=== PATIENT | male | born 1935 | race Caucasian/White ===

== ENCOUNTER 2020-09-23 02:36 | Emergency (ER) | payer MEDICARE, BC ==
[~2020-09-23] VITALS: Ht 177.8 cm; Wt 83.9 kg
[~2020-09-23 02:36] MED LIST: ADVIL200 MG PO; ASPIR-LOW81 MG PO; BACLOFEN10 MG PO; FLOMAX0.4 MG PO; GABAPENTIN300 MG PO; ICAPS TABLET1 EACH PO; MOTRIN IB200 MG PO; OXYCODONE HCL10 MG PO; PERCOCET 5-3251 EACH PO; PERCOCET 7.5-31 EACH PO; TYLENOL EXTRA500 MG PO; VITAMIN C500 M4 PO
== END 2020-09-23 03:14 | disposition home or self-care (01) ==
LOC: ED 02:36
DX: R33.9 Retention of urine, unspecified (principal); Z79.899 Other long term (current) drug therapy; Z79.82 Long term (current) use of aspirin
CPT/HCPCS: 51702; 99283-25

== ENCOUNTER 2020-09-25 06:09 | Emergency (ER) | payer MEDICARE, BC ==
[~2020-09-25] VITALS: Ht 177.8 cm; Wt 83.9 kg
--- OUTSIDE RECORDS SUMMARY | 2020-09-25 06:12 | XMS ---
PreManage Notification: KVNG MEDRANO Security [employer]ic [employer]ter Events No recent Security Events currently on file CRITERIA MET - [facility] - 2 Visits in 30 Days CARE PROVIDERS There are no care providers on record at this time. Bob has no Care Guidelines for this patient. rAlene VISIT COUNT (12 MO.) 2 [facility] [place] [facility] TOTAL 2 NOTE: Visits indicate total known visits. ED/C VISIT TRACKING (12 MO.) 09/25/2020 06:[address] [facility] [place] TYPE: Emergency COMPLAINT: - URINATION PROBLEM 09/23/2020 02:36 [facility] [place] TYPE: Emergency COMPLAINT: - POST OP PROBLEM INPATIENT VISIT TRACKING (12 MO.) No inpatient visits to display in this time frame [email or web address]
[2020-09-25] MEDS ORDERED: FLOMAX0.4 MG PO (07:52)
[2020-09-25] MEDS ORDERED: SULFAMETHOXAZO1 EAC1 PO (08:43)
== END 2020-09-25 08:37 | disposition home or self-care (01) ==
LOC: ED 06:09
DX: R33.9 Retention of urine, unspecified (principal)
CPT/HCPCS: 51702; 51798; 81001; 99283-25

== ENCOUNTER 2021-09-17 11:52 | Inpatient (IN) | payer MEDICARE, BC ==
[~2021-09-17] VITALS: Ht 177.8 cm; Wt 84.2 kg
[~2021-09-17 11:52] MED LIST changes: +SULFAMETHOXAZO1 EAC1 PO
--- NOTE | 2021-09-17 15:06 | NUR ---
REPORT RECEIVED FROM CANDLEMAKER. PT TRANSPORTED TO CCU VIA STRETCHER ON MARKETING SUPPORT MANAGER. ALL BELONGINS BROUGHT WITH PT
--- NOTE | 2021-09-17 15:45 | NUR ---
ADMISSION ASSESSMENT COMPLETED. PT ALERT AND ORIENTED UPON ARRIVAL. ABLE TO USE STANDING SCALE AND AMBULATE TO BED WITH ONLY STAND BY ASSIST. HEART RATE UP TO 130 WITH EXERTION. AND PT VISIBLY SHORT OF BREATH. ON 5 MG/HR ON THE CARDIZEM DRIP. AT REST HEART RATE STILL 110-120. CARDIZEM TITRATED AT THIS TIME (SEE FLOWSHEET). CRACKLES IN LOWER LUNG BASES NOTED. PLAN OF CARE ESTABLISHED WITH PT AND PT'S . ALL QUESTIONS ANSWERED. MEDICATIONS ADMINISTERED. CALL LIGHT WITHIN REACH. WILL CONTINUE TO MONITOR.
--- NOTE | 2021-09-17 15:56 | NUR ---
PT STOOD AT BEDSIDE TO VOID. HEART RATE UP TO 150S WITH EXERTION. RESPIRATIONS IN THE 30S. PT NOW BACK IN BED. CARDIZEM DIP CONTINUES TO INFUSE. CALL LIGHT WITHIN REACH. WILL CONTINUE TO MONITOR.
--- NOTE | 2021-09-17 16:54 | NUR ---
PT AT 10 MG/HR ON THE CARDIZEM DRIP. HEART RATE CONTINUES TO GO UP INTO THE 140S WITH EXERTION. RESTING HEART RATE 100-120. PT NOW EATING DINNER. [facility]. WILL CONTINUE TO MONITOR.
--- NOTE | 2021-09-17 20:30 | NUR ---
ASSISTED PATIENT TO STAND AT BEDSIDE AND USE URNAL. PATIENT REWQUIRED MINIMAL ASSISTANCE. VOIDED 125 MLS AND RETUNRED TO BED. INCREASED RR HIGH 20'S. DENIED SOB. ASSISTED TO TURNED TO LEFT SIDE AND WARM BLANKET PROVIDED. CALL LIGHT IN REACH.
--- NOTE | 2021-09-17 20:40 | NUR ---
PT LAYING IN BED AWAKE AND ALERT ON ROOM AIR, DILTIAZEM DRIP ON AT 5MG/HR. HR NOTED TO BE MAINTIANING IN THE 80-90'S. PT VITALS TAKEN AND SCHEDULED PO LOPRESSOR ADMINISTERED (SEE APR). PT DENIES THE NEED FOR PAIN MEDICATION AT THIS TIME. ASSESSMENT COMPLETED. PT ALERT AND ORIENTED X4, HEART RYTHM IRREGULAR, LUNGS ARE CLEAR IN UPPER LOBES AND CLEAR/DIMINISHED IN THE BASES. PT DENIES SHORTNESS OF BREATH AT THIS TIME WHILE AT REST. ABDOMEN SOFT, BOWEL TONES ACTIVE. PT PULSES ARE STRONG WITH BRISK CAPILLARY REFILL IN EXTREMITIES. PT REPORTS ONL NUMBNESS/TINGLING ON THE RIGHT HAND ALONG SMALL FINGER/SIDE OF HAND WHICH HE REPORTS IS CHRONIC AND FROM GOUT. PT REPORTS NO FURTHER NEEDS AFTER BEING ASSESSED AND REMAINS RESTING IN BED. CALL LIGHT IN REACH, BED IN LOWEST POSITION, BED ALARM ON. WILL CONTINUE PLAN OF CARE.
--- NOTE | 2021-09-17 21:50 | NUR ---
PT RESTING IN BED AWAKE, DILTIAZEM DRIP REMAINS AT 5MG/HR. PT ECG LEADS REPLACED AT THIS TIME. PT REPORTS NO PAIN AT THIS TIME WHEN ASKED AND DENIES THE NEED FOR PAIN MEDICATION. PT NOTED TO DESATURATE WHILE FALLING ASLEEP. PT DENIES SHORTNESS OF BREATH WHEN ASKED. PT WAS PLACED ON 2L O2 NC AT THIS TIME TO MAINTAIN SPO2 ABOVE 90%. PT NOW AT 99% SPO2. PT REPORTS NO FURTHER NEEDS AT THIS TIME. CALL LIGHT IN REACH, BED IN LOWEST POSITION. WILL CONTINUE PLAN OF CARE.
--- NOTE | 2021-09-17 23:52 | NUR ---
CALL LIGHT USED BY PT, PT SITTING UP AT THE BEDSIDE AND STATES HE NEEDS TO VOID. PT ABLE TO STAND WITHOUT ASSISTANCE AND VOIDED 100ML INTO URINAL. PT NOTED TO BECOME SHORT OF BREATH WHEN STANDING UP, SPO2 MAINTAINED ABOVE 90% DURING THAT TIME. PT NOW BACK IN BED. PT REMAINS ON 5MG/HR DILTIAZEM AND 2L O2 NC. ONCE IN BED THE PT REPORTED 4/10 BACKPAIN AND REQUESTED PRN TRAMADOL. PRN TRAMADOL ADMINISTERED (SEE MAR). SNACKS PROVIDED PER PT'S REQUEST. PT REPORTS NO FURTHER NEEDS WHEN ASKED AND IS RESTING IN BED AT THIS TIME. CALL LIGHT IN REACH, BED IN LOWEST POSITION, WILL CONTINUE PLAN OF CARE.
--- NOTE | 2021-09-18 00:30 | NUR ---
PATIENT VOIDED TO URNAL 100 MLS. REQUIRED MINIMAL ASSISTANCE. WARM BLANKET PROVIDED PER REQUEST. CALL LIGHT IN REACH.
--- NOTE | 2021-09-18 02:15 | NUR ---
GOPAL MCKENZIE IN PT'S ROOM TO ASSIST THIS RN. GOPAL MCKENZIE ADMINISTERED SCHEDULED LOPRESSOR AND TITRATED PT'S DILTIAZEM DRIP TO 2.5MG/HR.
--- NOTE | 2021-09-18 03:10 | NUR ---
PT LAYING IN BED AWAKE AND ALERT AT THIS TIME ON HIS SIDE. VITALS TAKEN AT THIS TIME AND ASSESSMENT COMPLETED (SEE CHART). PT REMAINS ON 2L O2 NC, DILTIAZEM AT 2.5 MG/HR. HR MAINTAINING IN THE 80-90'S. PT REPORTS NO NEEDS WHEN ASKED AND REMAINS RESTING IN BED. WILL CONTINUE PLAN OF CARE.
--- NOTE | 2021-09-18 06:04 | NUR ---
PT REMAINS RESTING IN ROOM, EYES CLOSED. DILTIAZEM DRIP REMAINS AT 2.5 MG/HR, PT ON 2L O2. HR REMAINS IN THE 90'S. URINAL EMPTIED AT THIS TIME. PT IN NO APPARENT DISTESS AT THIS TIME AND WAS LEFT UNDISTURBED. CALL LIGHT WITHIN REACH, WILL CONTINUE PLAN OF CARE.
--- NOTE | 2021-09-18 06:05 | NUR ---
PT LAYING IN BED RESTING WITH HIS EYES CLOSED AT THIS TIME. DILTIAZEM REMAINS AT 2.5MG/HR, PT ON 2L O2 NC. HR 90'S, SPO2 98%. URINAL EMTPIED OF 275ML OF CONCENTRATED URINE AT THIS TIME. PT IN NO APPARENT DISTRESS AT THIS TIME AND WAS LEFT UNDISTURBED. CALL LIGHT IN REACH, BED IN LOWEST POSITION, WILL CONTINUE PLAN OF CARE.
--- NOTE | 2021-09-18 06:55 | NUR ---
DR. GREEN NOTIFIED ON PT'S VITALS, DILTIAZEM DRIP, AND LABS. NEW ORDERS GIVEN TO ADMINISTER 2 G MAGNESIUM SULFATE X2 OVER 2 HOURS, INCREASE PO METOPROLOL DOSE TO 25MG Q6, AND WEAN OFF DILTIAZEM DRIP AFTER ADMINISTERING 0800 DOSE OF METOPROLOL. WILL CONTINUE PLAN OF CARE.
--- NOTE | 2021-09-18 07:15 | NUR ---
REPORT RECEIEVED, FROM THERAPIST PHYS RN. CARE OF PT ASSUMED AT THIS TIME. HEAD OF IT IN ROOM WITH PT AT THIS TIME.
[2021-09-18] MEDS ORDERED: OMEPRAZOLE20 MG PO (07:55)
[2021-09-18] MEDS ORDERED: TRAMADOL HCL50 MG PO (07:56)
[2021-09-18] MEDS ORDERED: TRAZODONE HCL50 MG PO (07:57)
[2021-09-18] MEDS ORDERED: TAMSULOSIN HCL0.4 MG PO (07:58)
--- NOTE | 2021-09-18 08:15 | NUR ---
ASSESSMENT AND MEDICATION ADMINISTRATION COMPLETED. PT REMAINS AT 2.5 MG/HR ON THE DILTAZEM DRIP. GIVEN 25 MG OF ORAL LOPRESSOR AT THIS TIME. PLAN ESTABLISHED TO DC DRIP IN 1/2 HR. PT STILL HAS BILATERAL EDEMA IN LOWER LEGS, CRACKLES IN LUNG BASES. PT UP IN CHAIR EATING BREAKFAST. CALL LIGHT WITHIN REACH. WILL CONTINUE TO MONITOR.
--- NOTE | 2021-09-18 08:40 | NUR ---
DILTAZEM DRIP PLACED ON STANDBY AT THIS TIME. PT HEART RATE 90-100 AT REST. WILL CONTINUE TO CLOSELY MONITOR.
--- NOTE | 2021-09-18 10:39 | NUR ---
KRISTIAN ADMINISTERED. PT AND UPDATED ON PLAN OF CARE. ALL QUESTIONS ANSWERED. HEART RATE IN THE 80S. CALL LIGHT WITHIN REACH. NO FURTHER NEEDS AT THIS TIME.
--- NOTE | 2021-09-18 10:45 | NUR ---
INTO SEE PATIENT, PATIENT SITTING UP IN CHAIR. PATIENTS KOURTNEY AT BEDSIDE. PATIENT HAS BEEN INDEPENDENT IN THE PAST, BUT HAS NEEDED TO USE A WALKER RECENTLY DUE TO BACK PAIN. PATIENT DENIES FINANCIAL NEEDS AT THIS TIME. PCP, PHARMACY AND DEMOGRAPHIC INFORMATION CONFIRMED. NO FURTHER CONCERN FROM PATIENT AND AT THIS TIME.
[2021-09-18] MEDS ORDERED: METAMUCIL660 GM PO (10:49)
[2021-09-18] MEDS ORDERED: VITAMIN D350 MCG PO (10:49)
--- NOTE | 2021-09-18 12:05 | NUR ---
DR GREEN IN ROOM TO DISCUSS PLAN OF CARE WITH PT AND . ALL QUESTIONS ANSWERED. PT REMAINS UP IN RECLINER. CALL LIGHT WITHIN REACH. WILL CONTINUE TO MONITOR.
--- NOTE | 2021-09-18 12:22 | NUR ---
PT ALERT, ORIENTED AND SITTING UP IN CHAIR WITH LEGS ELEVATED. KOURTNEY VISITING. PT FEELS WELL CARED FOR, BOTH EXPRESS APPRECIATION FOR CARE AND COMPASSION SHOWN. PT REQUESTED PRAYER, WILL FOLLOW
--- NOTE | 2021-09-18 14:36 | NUR ---
IN ROOM TO CHECK ON PT. PT SITTING IN RECLINER WITH LEGS DOWN. DISCUSSED KEEPING LEGS ELEVATED WITH PT AND PT . 2 PLUS PITTING EDEMA PRESENT IN BOTH LEGS. LUNG SOUNDS HAVE IMPROVED. LESS CRACKLES NOTED IN BILATERAL LUNG BASES THAN EARLIET IN THE SHIFT. LASIX WORKING WELL. PT DIURESED 1600 MLS SINCE ADMINISTRATION OF LASIX. HEART RATE 90-100 AT REST. CALL LIGHT WITHN REACH. WILL CONTINUE TO MONITOR.
--- NOTE | 2021-09-18 15:55 | NUR ---
PT AMBULATED IN HALLWAY WITH 4WW AND THIS RN STAND BY ASSIST. PT HEART RATE UP TO 120 AT THE HIGHEST. PT LESS SHORT OF BREATH WITH EXERTION. ABLE TO WALK THE HALLWAY TWICE. BACK IN CHAIR. HEART RATE 100-110 AT REST. IN ROOM WITH PT. CALL LIGHT WITHIN REACH. WILL CONTINUE TO MONITOR.
--- NOTE | 2021-09-18 18:14 | NUR ---
PT AMBULATED TO BATHROOM TO HAVE A BOWEL MOVEMENT. HEART RATE UP INTO THE 130S. NOW AT REST HEART RATE 95-110. PT DENIES FEELING SHORT OF BREATH. NOW RESTING IN CHAIR. DR GREEN UPDATED.
--- NOTE | 2021-09-18 19:47 | NUR ---
pt GETTING UP BY SELF. IN TO ASSIST. pt GOT BED READY. PROVIDED WITH WARM BLANKET. 175MLS OUT LIGHT YELLOW URINE. pt RESTING IN BED. CALL LIGHT IN HAND.
--- NOTE | 2021-09-18 20:05 | NUR ---
pt SETTLED IN BED FOR NIGHT. ASSESSMENT DONE. pt DENIES PAIN AT THIS TIME. PITTING EDEMA FROM THIGHS TO FEET. pt REPORTS "MY LEGS FEEL A LOT LESS TIGHT" FINE CRACKLES IN BILATERAL LUNG BASES. NO REQUESTS AT THIS TIME. CALL LIGHT WITHIN REACH.
--- NOTE | 2021-09-18 20:53 | NUR ---
pt UP TO VOID, HR 140'S WHEN UP. REQUIRED ABOUT 5 MINUTES OF REST IN BED BEFORE HR TRENDED DOWN TO 110'S.
--- NOTE | 2021-09-18 21:09 | NUR ---
DR GREEN NOTIFIED BY GOPAL MCKENZIE THAT pt HR IS HIGH WITH AMBULATION. DR GREEN TO PUT IN ORDERS.
--- NOTE | 2021-09-18 23:15 | NUR ---
pt UP TO HAVE BM. HR UP TO 140'S WHEN AMBULATING. MAGALY RN IN ROOM TO ASSIST pt.
--- NOTE | 2021-09-19 01:32 | NUR ---
pt UP TO HAVE BM. THIS RN IN TO ASSIST WITH CABLES. pt HR UP TO 140'S WITH AMBULATION. IN BATHROOM. CALL LIGHT WITHIN REACH.
--- NOTE | 2021-09-19 01:44 | NUR ---
pt FINISHED IN BATHROOM, REPORTS ANOTHER LIQUID STOOL. pt VOIDED 100MLS LIGHT YELLOW URINE. pt COMPLAINED OF BACK PAIN, DECLINED MEDICATION AT THIS TIME. SITTING IN THE CHAIR. VITALS DONE. SCHEDULED MEDICATIONS GIVEN. pt's BREATHING IS LABORED WHEN WALKING AND REQUIRES 5 OR MORE MINUTES OF REST TO RECOVER. pt STATES THIS HAS BEEN HIS NORMAL FOR "A WHILE". ASSESSMENT DONE. CALL LIGHT WITHIN REACH.
--- NOTE | 2021-09-19 02:08 | NUR ---
CALL LIGHT ON. pt REQUESTED ASSISTANCE TO REPOSITION. PROVIDED PILLOWS. PRN PAIN MEDICATION GIVEN FOR 7/10 PAIN. pt REPORTS HE FEELS "DOWN" ABOUT HIS PROGRESS AND THAT HIS HEART RATE IS NOT IMPROVING. HE ALSO IS FEELING "WORN OUT" FROM GETTING UP ALL THE TIME. DISCUSSED OPTIONS. BSC MOVED NEXT TO CHAIR. POSSESSIONS WITHIN REACH. pt AGREEABLE TO TRY PLAN. CALL LIGHT WITHIN REACH.
--- NOTE | 2021-09-19 03:41 | NUR ---
NOTED pt MOVING IN ROOM. HR 116 AT HIGHEST NOTED. ASSISTED pt WITH COVERS AND PROVIDED A WARM BLANKET. HE STATED HIS PAIN IS IMPROVED. 200MLS LIGHT YELLOW URINE OUT IN BSC. pt RESTING IN CHAIR. NO FURTHER REQUESTS AT THIS TIME. CALL LIGHT WITHIN REACH.
--- NOTE | 2021-09-19 05:33 | NUR ---
LAB FINISHED WITH DRAW. IN TO ASSESS. pt REPORTS HE IS FEELING "BETTER" THIS AM DISCUSSED PLAN OF CARE AND pt REPORTS HE FEELS LESS SHORT OF BREATH THIS AM. ASSESSMENT DONE. NO OTHER CHANGES. CALL LIGHT WITHIN REACH. pt RESTING IN THE CHAIR.
--- NOTE | 2021-09-19 06:02 | NUR ---
pt STANDING TO URINATE. HR 124, RESPIRATIONS 30 AND LABORED. IN TO EMPTY URINAL. 125 MLS LIGHT YELLOW URINE. pt HAD SMEAR BM. STANDING WEIGHT. pt RESTING IN CHAIR. pt REPORTS HIS BACK PAIN IS "STILL THERE BUT OKAY" CALL LIGHT WITHIN REACH.
--- NOTE | 2021-09-19 07:45 | NUR ---
REPORT RECIEVED FROM DRIVER SERVICE TECHNICIAN RN. PATIENT UP IN THE CHAIR AT THIS TIME. PATIENTS HR HAS BETTER CONTROLLED IN THE NIGHT. PATIENT HAS CALL LIGHT AND CALLS APPROPRUIATELY. WILL CONTINUE TO CLOSELY MONITOR.
--- NOTE | 2021-09-19 08:55 | NUR ---
PATIENT UP IN THE CHAIR READING. PATIENTS ASSESSMENT COMPLETED. PATIENTS BREATH SOUNDS ARE CLEAR IN UPPERS AND SOME CRACKLES NOTED IN BILATEAL LOWER BASES. RR- 22. SPO2 98%. PATIENT DENIES SOB , BUT DOES HAVE EXERTIONAL SOB WITH ACTIVITY. BOWEL TONES ACTIVE. BREKFAST AT THE BEDSIDE. MEDICATIONS GIVEN. PATIENT IS HOPING TO GET MOVED TO A NEW ROOM TODAY. PATIENT WOULD REALLY LIKE A SHOWER. PATIENT WAS UPDATED YESTERDAY THAT THERE ARE IS NO SHOWER IN HIS ROOM. WILL DISCUSS PLAN OF CARE WITH MD LATER TODAY. IF PATIENT DOES NOT MOVE ROOM WILL SEE IF MEDICAL UNIT STAFF CAN TAKE PATIENT FOR A SHOWER. PATIENT DENIES ANY OTHER NEEDS AT [facility] TIME. WILL CONTINUE TO CLOSELY MONITOR. CALL [facility] IN REACH.
--- NOTE | 2021-09-19 10:45 | NUR ---
THIS RN UPDATED MD GREEN THAT PATIENTS HR IS NOT WELL CONTROLLED AT THIS TIME. ADDITIONAL DOSE OF DILTIAZEM GIVEN PER ORDERS AND NEW ORDERS WERE PLACED FOR AN INCREASED AMOUNT ON NEXT ADMINISTRATION. PATIENT DENIES FEELING PALPITATIONS, BUT DOSE BECOME SOB WITH ACTIVITY. NO OTHER NEEDS AT THIS TIME. WILL CONTINUE TO CLOSELY MONITOR.
--- NOTE | 2021-09-19 12:30 | NUR ---
GREEN IN TO SEE PATIENT AND DISCUSSED PLAN OF CARE WITH PATIENT. PATIENT AND HIS ARE AGREEABLE TO PLAN OF CARE. PATIENT REQUESTING A SHOWER. PER MD PATIENT MAY TO TO THE MEDICAL UNIT WITH A MINING DETAIL DRAFTSPERSON AND HAVE A SHOWER. NO OTHER NEEDS AT THIS TIME. WILL CONTINUE TO CLOSELY MONITOR.
--- NOTE | 2021-09-19 14:46 | NUR ---
PATIENTS ASSESSMENT REMAINS UNCHANGED. PATIENT UPDATED THAT IRRIGATOR OVERHEAD WILL BE OVER TO ASSIST PATIENT TO SHOWER. NO OTHER NEEDS AT THIS TIME. WILL CONTINUE TO CLOSELY MONITOR.
--- NOTE | 2021-09-19 15:15 | NUR ---
PATIENT OVER WITH PHARMACEUTICAL OPERATOR PREM TO ROOM 118 TO TAKE A SHOWER. PATIENT REMIANED ON MONITOR.
--- NOTE | 2021-09-19 15:58 | NUR ---
PATIENT BACK FROM HIS SHOWER AND TOLERATED WELL. PATIENT MUCH HAPPIER AND WAS VERY THANKFUL HE SHOWERED. PATIENT DENIES ANY OTHER NEEDS AT THIS TIME. PATIENTS AT THE BEDSIDE. WILL CONTINUE TO CLOSELY MONITOR.
--- NOTE | 2021-09-19 17:28 | NUR ---
PATIENT HAS HAD FAMILY VISITING FOR PAST 1.5HRS. PATIENTS WATER REFILLED. DISCUSSED PLAN OF CARE. NO OTHER QUESTIONS AT THIS TIME. WILL CONTINUE TO CLOSELY MONITOR.
--- NOTE | 2021-09-19 18:54 | NUR ---
PATIENT RESTING IN CHAIR AT THIS TIME. PATIENT ATE DINNER AND TOELRATED WELL. PATIENT HAS CALL LIGHT. PATIENT DENIES ANY NEEDS AT THIS TIME. WILL CONTINUE TO CLOSELY MONITOR.
--- NOTE | 2021-09-19 21:11 | NUR ---
PATIENT RESTING ON SIDE, LUNG SOUNDS CLEAR THROUGHOUT. FULL BODY ASSESMENT DONE. PATIENT UP AND DOWN TO BSC, REPORTS HAVING MULTIPLE BOWEL MOVEMENTS. VSS WNL, HR 90 INCREASES TO 115 WITH ACTIVITY TO TOILET. PATIENT REPORTS NO PAIN. ADMINISTERED MEDICATIONS ORDERED. LIGHTS TURNED DOWN, CALL LIGHT WITHIN REACH.
--- NOTE | 2021-09-19 22:19 | NUR ---
PATIENT APPEARS TO BE RESTING EASY, CHEST RISE EQUAL AND REGULAR. CALL LIGHT WITHIN REACH.
--- NOTE | 2021-09-20 01:00 | NUR ---
PATIENT UP TO BSC, SMALL PASTY STOOL. PROVIDED PATIENT WITH MESH UNDERWEAR. PATIENT BACK TO BED, APPEARED TO BE GRIMACING. RATED PAIN 7/10 ON PAIN SCALE WITH CHRONIC BACK PAIN. STATED "THIS HOSPITAL BED IS NOT COMFORTABLE". ADMINISTERED TRAMADOL PRN PER APR. NOTED HR STARTING TO INCREASE AT REST INTO THE 100'S, ADMINISTERED MEDICAITON PER APR. PROVIDED WARM BLANKET. NO OTHER NEEDS AT THIS TIME, CALL LIGHT WITHIN REACH.
--- NOTE | 2021-09-20 04:00 | NUR ---
PATIENT UP AT BEDSIDE VOIDING IN URINAL, APPEARS TO TOLERATE ACTIVITY WELL. BACK INTO BED POSITIONING SELF ON SIDE. NO SOB WITH ACTIVITY. CALL LIGHT WITHIN REACH, NO OTHER NEEDS AT THIS TIME.
--- NOTE | 2021-09-20 06:48 | NUR ---
PATIENT RESTING IN BED, UP TO SCALE FOR DAILY WEIGHT. EDEMA IN LOWER EXTREMITIES APPEARS TO BE IMPROVED. PATIENT APPEARS TO BE BREATHING EASY, AND REGULAR. PATIENT BACK TO BED.
--- NOTE | 2021-09-20 08:40 | NUR ---
pickle pumper and scheduled medications given. Patient ambulated to chair, however, displayed shortness of breath when sitting up from bed and ambulating 10 feet to chair. Patient oxygenation remained above 90% and recovery time was < 1 minute to normal breathing pattern. Patient denies pain at this time. Patient completed oral care after eating breakfast. No needs at this time. Personal items and call light within reach.
--- NOTE | 2021-09-20 10:20 | NUR ---
Patient resting comfortably in room visiting with his . Patient is sitting up in the chair. Patient denies SOB while sitting; however, is still SOB when ambulating. Will continue to monitor. Personal items and call light within reach.
--- NOTE | 2021-09-20 11:00 | NUR ---
Ambulated patient in hallway, approximately 500 feet. HR up to 120, and oxygenation on RA down to 85%. Patient easily recovered within < 1 minute to < 100 heart rate and > 90% on RA. Reported information to Dr. Dowell. Patient now sitting in chair visiting with . No complaints or needs at this time. Personal items and call light within reach.
--- NOTE | 2021-09-20 12:09 | NUR ---
Patient sitting in chair for lunch. Patient eating at this time and denies any needs. at bedside (guest tray ordered). Patient denies needs at this time. Personal items and call light within reach.
--- NOTE | 2021-09-20 13:39 | NUR ---
Patient ambulated in hallway without difficulty with HR raising to 90s. Patient returned to chair after ambulation.
--- NOTE | 2021-09-20 13:58 | NUR ---
Patient currently sitting in bed while visiting with . Manual blood pressure taken (92/72). Information reported to Dr. Dowell regarding lower pressures and to inquire about giving medications. At this time, returning patient to lower dose of cardizem and maintaining use of metoprolol dosage. Patient denies needs at this time. All personal items and call light within reach.
--- NOTE | 2021-09-20 15:31 | NUR ---
Patient ambulated in hallway with spouse. Highest HR was 96 while ambulating. Patient returned back to room and sat in chair. HR reached 99 while moving in chair. Patient noted to have mild SOB during exertion, but stated he felt good when walking. Oxygenation down to 90% while walking, but quickly back to 100% after recovery of < 1 minute. Patient denies any needs at this time. Personal items and call light within reach.
--- NOTE | 2021-09-20 16:12 | NUR ---
Patient sitting comfortably in chair resting, reading. Patient denies any needs at this time. Patient continues to use the urinal as requested. Patint denies any needs at this time. Personal items and call light within reach.
--- NOTE | 2021-09-20 18:01 | NUR ---
Patient has been able to ambulate in the hallways today multiple times. HR ranged from 80s - 120 max. Patient was noted to be short of breath on all walks and oxygenation low was 85%. Patient was able to recover quickly on RA and within < 1 minute each time. During the last walk, the patient was able to ambulate keeping HR < 95 and oxygenation above 90% on RA. BLE still noted (+2 pitting), but improving with lasix pushes.
--- NOTE | 2021-09-20 19:30 | NUR ---
REPORT RECEIVED FROM ЮЛИЯ HERRON. PT IS RESTING IN BED WITH EYES CLOSED, RESP EVEN AND UNLABORED, HR 90'S. AWAKENS, DENIES NEEDS, BACK TO SLEEP.
--- NOTE | 2021-09-20 20:20 | NUR ---
IN TO DO VS AND ASSESSMENT. ASKED IF PT NEEDS ANYTHING STATES "NOPE, JUST TO HAVE THE LIGHTS OUT FOR BED". GIVEN HS MEDICATIONS, CARDIZEM AND TOPROL. DENIES PAIN AT THIS TIME. ALERT AND ORIENTED. CALL LIGHT IN REACH.
--- NOTE | 2021-09-20 23:38 | NUR ---
PROVIDED REPORT TO BOUCHRA HERRON WHO WILL RESUME CARE, PATIENT TRANSFERING [facility] ROOM 113. ANSWERED QUESTIONS AND CONCERNS. PATIENT TRANSFERED OVER IN HOSPITAL BED, WITH ALL PATIENT BELONGINGS.
--- NOTE | 2021-09-21 00:03 | NUR ---
REPORT RECEIVED FROM CCU RN. PATIENT IS NOW IN ROOM 113. PATIENT OREINTED TO ROOM. ALL QUESTIONS ANSWERED. ALL BELONGIGNS ARE IN ROOM.
--- NOTE | 2021-09-21 02:16 | NUR ---
PATIENTS VITALS TAKEN AND RECORDED. SCHEDULED MEDS GIVEN PER ORDER. NO FURTHER NEEDS NOTED. CALL LIGHT IN REACH.
--- NOTE | 2021-09-21 04:12 | NUR ---
PATIENT IS RESTING IN BED WITH EYES CLSOED, RR 16. CALL LIGHT IN REACH.
--- NOTE | 2021-09-21 06:19 | NUR ---
PATIENTS VITALS TAKEN AND RECORDED. INTAKE AND OUTPUT RECORDED. STANDING WWIGHT OBTAINED AND RECORDED. PATIENTS IV FLUSHED AND SL PER ORDER. PATIENT RATES PAIN IN HIS BACK AT A 4/10, PRN PAIN MEDICATION GIVEN PER ORDER. NO FURTHER NEEDS NOTED. CALL LIGHT IN REACH.
--- NOTE | 2021-09-21 07:27 | NUR ---
REPORT FROM BERYL SHOOK RN.
--- NOTE | 2021-09-21 08:34 | NUR ---
MORNING ASSESSMENT DONE. PATIENT UP TO BATHROOM TO VOID, SITTING UP IN CHAIR FOR BREAKFAST. PATIENT REPORTS CHRONIC BACK PAIN IS CURRENTLY 4/10 AND SLIGHTLY IMPROVED AFTER ULTRAM. VSS, MORNING MEDICATIONS GIVEN. NO OTHER NEEDS NOTED AT THIS TIME.
--- NOTE | 2021-09-21 09:45 | NUR ---
PATIENT IS UP IN CHAIR, SLEEPING WITH REGULAR RESPIRATIONS.
--- NOTE | 2021-09-21 10:15 | NUR ---
Spoke with David and his . Dr Alvarez arrived and explained pts AFib and RVR and need to stay at least another day. Pt in agreement to stay. He discussed needs and cost of anticoagulation agents discussed. states pt will need the med no matter what and they will pay for it. Plan for dc to home when cleared by Dr. Alvarez.
--- NOTE | 2021-09-21 12:40 | NUR ---
PATIENT IS UP TO CHAIR, SPOUSE IN ROOM AND THEY HAD LUNCH TOGETHER. PATIENT DENIES NEEDS AT THIS TIME.
--- NOTE | 2021-09-21 14:47 | NUR ---
PT ALERT, ORIENTED AND SITTING IN CHAIR VISITING WITH KOURTNEY. BOTH FEEL GOOD ABOUT CARE RECEIVED AT [facility] AND FEEL INFORMED. HAD GOOD VISIT, PT TIRED OF BEING HERE BUT KNOWS HE NEEDS TO BE HERE. GAVE BLESSING AND WILL FOLLOW.
--- NOTE | 2021-09-21 14:49 | NUR ---
IV LASIX GIVEN. DISCUSSED WITH PATIENT AND SPOUSE MANAGEMENT OF CHF, DAILY WEIGHT, INTAKE, MONITORING LEG EDEMA.
--- NOTE | 2021-09-21 18:32 | NUR ---
PATIENT GIVEN DOSE OF IV LASIX, UP TO CHAIR.
--- NOTE | 2021-09-21 19:23 | NUR ---
PATIENT'S HELPED HIM WITH HIS SHOWER THIS AFTERNOON. PATIENT IS SITTING IN HIS CHAIR READING A BOOK ON HIS ELIU.
--- NOTE | 2021-09-21 19:36 | NUR ---
RECEIVED REPORT FROM DAY SHIFT RN. PATIENT IS RESTING IN BED. NO NEEDS NOTED. CALL LIGHT IN REACH.
--- NOTE | 2021-09-21 20:50 | NUR ---
PATIENT ASSESMENT COMPLETED. VITALS TAKEN AND RECORDED. INTAKE AND OUTPUT RECORDED. PM MEDS GIVEN PER ORDER. PATIENT RATES PAIN AT A 4/10 IN LOWER BACK AND DENIES THE NEED FOR INTEVENTION AT THIS TIME. PATIENTS IV FLUSHED AND SL PER ORDER. PATIENT DENIES ANY SOB. PATIENT IS ON RA. 2+ EDEMA NOTED IN BILAT LOW EXT. PATIENT PROVIDED CHF EDUCATION PACKET AND ALL QUESTIONS ANSWERED ABOUT PACKET. NO FURTHER NEEDS NOTED. CALL LIGHT IN REACH.
--- NOTE | 2021-09-21 23:03 | NUR ---
PATIENT IS RESTING IN BED WITH EYES CLSOED, RR 16. CALL LIGHT IN REACH.
--- NOTE | 2021-09-22 02:08 | NUR ---
VITALS TAKEN AND RECORDED. MEDS PER ORDER. PATIENT RATES LOWER BACK PAIN AT A 5/10, PRN PAIN MEDICATION GIVEN PER ORDER. PATIENT PROVIDED SNACK AND FRESH WATER. NO FURTHER NEEDS NOTED. CALL LIGHT IN REACH.
--- NOTE | 2021-09-22 03:42 | NUR ---
PATIENT IS RESTING IN BED WITH EYES CLOSED, RR 17. CALL LIGHT IN REACH.
--- NOTE | 2021-09-22 06:12 | NUR ---
PATIENTS VITALS TAKEN AND RECORDED. INTAKE AND OUTPUT REC ORDED. DW TAKEN AND RECORDED. PATIENT RATES LOWER BACK PAIN AT A 2/10 AND DENIES THE NEED FOR INTERVENTION AT THIS TIME. NO FURTHER NEEDS NOTED. CALL LIGHT IN REACH.,
--- NOTE | 2021-09-22 07:44 | NUR ---
PT REPORT RECIEVED FROM GOPAL SHOOK.
--- NOTE | 2021-09-22 10:40 | NUR ---
PT WALKED IN [facility] AND DID WELL. HR REMAINED BELOW 120. DENIED SOB. EDEMA IN BLE 1-2 LION. PT DENIES NEEDING ANYTHING FOR PAIN ATT.
--- NOTE | 2021-09-22 11:47 | NUR ---
PT SITTING UP IN [facility]IR TALKING WITH .
--- NOTE | 2021-09-22 13:39 | NUR ---
PT TAKING A NAP IN CHAIR WITH LEGS UP, IN ROOM. ATE ALL OF LUNCH.
--- NOTE | 2021-09-22 13:42 | NUR ---
PT AND KOURTNEY BOTH EATING LUNCH TOGETHER AND SEEM TO BE ENJOYING IT. PT ADMITTED HE IS FEELING MUCH BETTER AND LOOKS LIKE HE IS. GAVE BLESSING, WILL FOLLOW NEEDED
[2021-09-22] MEDS ORDERED: ELIQUIS5 MG PO (13:57)
[2021-09-22] MEDS ORDERED: METOPROLOL SUCC50 MG PO (13:59)
[2021-09-22] MEDS ORDERED: LOSARTAN POTASS25 MG PO (14:00)
[2021-09-22] MEDS ORDERED: TORSEMIDE10 MG PO (14:01)
--- NOTE | 2021-09-24 13:06 | EKG ---
[facility] [address] [place] [address] Signed Atrial fibrillation with rapid ventricular response Low voltage QRS Abnormal ECG When compared with ECG of 01-JAN-2019 15:42, Atrial fibrillation has replaced Sinus rhythm Vent. rate has increased BY [address] no longer elevated in Inferior leads Nonspecific T wave abnormality now evident in Inferior leads Confirmed by SALVATORE GREEN MD ([id number]) on 09/24/2021 1:06:31 PM Electronically Signed By: SALVATORE GREEN MD 09/24/21 1306 PATIENT NAME: KVNG MEDRANO Electrocardiogram DATE OF : 37 PHYSICIAN: SALVATORE GREEN MD REPORT #: [id number] REPORT IS CONFIDENTIAL AND NOT TO BE RELEASED WITHOUT AUTHORIZATION
== END 2021-09-22 15:07 | disposition home or self-care (01) | DRG 308 ==
LOC: ED 11:52 → CCU 14:12 → MS 09-20 23:41
PROVIDERS: ADMIT Internal Medicine; ATTEND Internal Medicine
DX: I48.19 Other persistent atrial fibrillation (principal); I50.33 Acute on chronic diastolic (congestive) heart failure; M54.50 Low back pain, unspecified; G89.29 Other chronic pain; N40.0 Benign prostatic hyperplasia without lower urinary tract symptoms; I25.5 Ischemic cardiomyopathy; F17.220 Nicotine dependence, chewing tobacco, uncomplicated; Z20.822 Contact with and (suspected) exposure to COVID-19; Z98.890 Other specified postprocedural states; Z79.899 Other long term (current) drug therapy; Z79.891 Long term (current) use of opiate analgesic; Z79.82 Long term (current) use of aspirin
CPT/HCPCS: 36415; 71045; 80048; 80053; 83735; 83880; 84484; 85025; 87502; 93005; 93010; 93306; 99285-25; A9270; C9803; J1650; J1940; J3475; U0003

== ENCOUNTER 2023-10-20 12:12 | Emergency (ER) | payer MEDICARE, BC ==
[~2023-10-20] VITALS: Ht 177.8 cm; Wt 85.3 kg
[~2023-10-20 12:12] MED LIST changes: +ELIQUIS5 MG PO; +LOSARTAN POTASS25 MG PO; +METAMUCIL660 GM PO; +METOPROLOL SUCC50 MG PO; +OMEPRAZOLE20 MG PO; +TAMSULOSIN HCL0.4 MG PO; +TORSEMIDE10 MG PO; +TRAMADOL HCL50 MG PO; +TRAZODONE HCL50 MG PO; +VITAMIN D350 MCG PO
[2023-10-20 12:49] LABS: BASOPHILS 0.4 % (0-2); EOSINOPHILS 1.6 % (0-6); HEMATOCRIT 45.1 % (35.0-50.0); HEMOGLOBIN 15.1 g/dL (12.0-18.0); MCHC 33.4 g/dl (30-36); MCV 92.7 fl (81-99); MONOCYTES 8.8 % (0-12); NEUTROPHILS 73.2 % (39-80); PLATELET COUNT 199 K/uL (140-440); RBC 4.87 M/ul (4.3-5.7)
[2023-10-20 12:59] LABS: ALBUMIN 3.3 g/dL (3.4-5.0); ALBUMIN/GLOBULIN RATIO 0.97 (1.1-2.4); ALCOHOL, MEDICAL <3 ng/dL (<3); ALKALINE PHOSPHATASE 87 U/L (46-116); ALT (SGPT) 25 U/L (14-59); ANION GAP 12.4 (7-21); AST (SGOT) 20 U/L (15-37); BILIRUBIN, TOTAL 0.8 ng/dL (0.2-1.0); BUN/CREATININE RATIO 16.27 (6.0-28.6); CALCIUM 8.9 mg/dL (8.5-10.1); CARBON DIOXIDE 26 mmol/L (21-32); CHLORIDE 102 mmol/L (98-107); CREATININE, SERUM 1.29 mg/dL (0.70-1.30); GLOMERULAR FILTRATION RATE,EST 54 mL/min (>60); POTASSIUM 4.4 mmol/L (3.5-5.1); PROTEIN, TOTAL 6.7 g/dL (6.4-8.2); UREA NITROGEN 21 mg/dL (7-18)
[2023-10-20] MEDS ORDERED: METOPROLOL SUCC50 MG PO (15:20)
[2023-10-20] MEDS ORDERED: AMIODARONE HCL200 MG PO (15:21)
[2023-10-20] MEDS ORDERED: ATORVASTATIN CA20 MG PO (15:21)
[2023-10-20] MEDS ORDERED: ENTRESTO 24 MG1 EACH PO (15:21)
[2023-10-20] MEDS ORDERED: CORRECTOL5 MG PO (15:24)
[2023-10-20] MEDS ORDERED: METAMUCIL0.4 GM PO (15:25)
[2023-10-20 16:10] VITALS: BP 150/121
== END 2023-10-20 16:10 | disposition home or self-care (01) ==
LOC: ED 12:12
PROVIDERS: Emergency Medicine
DX: R53.1 Weakness (principal); Z79.899 Other long term (current) drug therapy
CPT/HCPCS: 36415; 70450; 80053; 85025; 99284-25; G0480

== ENCOUNTER 2023-10-21 19:33 | Inpatient (IN) | payer MEDICARE, BC ==
[~2023-10-21] VITALS: Ht 177.8 cm; Wt 78.1 kg
[~2023-10-21 19:33] MED LIST changes: +AMIODARONE HCL200 MG PO; +ATORVASTATIN CA20 MG PO; +CORRECTOL5 MG PO; +ENTRESTO 24 MG1 EACH PO; +METAMUCIL0.4 GM PO
[2023-10-21 19:57] LABS: BASOPHILS 0.1 % (0-2); EOSINOPHILS 0.2 % (0-6); HEMATOCRIT 45.4 % (35.0-50.0); HEMOGLOBIN 15.3 g/dL (12.0-18.0); LYMPHOCYTES 8.2 % (24-44); MCHC 33.6 g/dl (30-36); MCV 92.3 fl (81-99); MONOCYTES 9.9 % (0-12); NEUTROPHILS 81.6 % (39-80); PLATELET COUNT 206 K/uL (140-440); RBC 4.92 M/ul (4.3-5.7); RDW 14.9 (10.5-15.0)
[2023-10-21 20:11] LABS: ALBUMIN 3.4 g/dL (3.4-5.0); ALBUMIN/GLOBULIN RATIO 0.94 (1.1-2.4); ALCOHOL, MEDICAL <3 ng/dL (<3); ALKALINE PHOSPHATASE 89 U/L (46-116); ALT (SGPT) 36 U/L (14-59); ANION GAP 12.6 (7-21); AST (SGOT) 29 U/L (15-37); BUN/CREATININE RATIO 15.62 (6.0-28.6); CALCIUM 9.1 mg/dL (8.5-10.1); CARBON DIOXIDE 29 mmol/L (21-32); CHLORIDE 103 mmol/L (98-107); CREATININE, SERUM 1.28 mg/dL (0.70-1.30); GLOMERULAR FILTRATION RATE,EST 55 mL/min (>60); POTASSIUM 4.6 mmol/L (3.5-5.1); UREA NITROGEN 20 mg/dL (7-18)
[2023-10-21] MEDS ORDERED: ACETAMINOPHEN 500 MG TAB PO ONE (20:15)
[2023-10-21 20:31] LABS: ABO O; ANTIBODY SCREEN NEGATIVE; RH POSITIVE
[2023-10-21] MEDS ORDERED: KETOROLAC TROMETHAMINE 15 MG/ML VIAL IV ONE (21:30)
[2023-10-21] MEDS ORDERED: TRAZODONE HCL 50 MG TAB PO PRN (23:00)
[2023-10-21] MEDS ORDERED: TRAMADOL HCL 50 MG TAB PO PRN (23:00)
--- NOTE | 2023-10-21 23:30 | NUR ---
pt ARRIVED TO THE FLOOR VIA WHEEL CHAIR. pt ABLE TO TRANFER TO THE BED WITH 1PA. VITAL SIGNS, ADMISSION AND ASSESSMENT DONE. RLL DEMINISHED. WATER REFRESHED. BED ALARM ON. pt DENIES ANY OTHER NEEDS AT THIS TIME. CALL LIGHT WITHIN REACH. IV ASSESSED, WNL.
[2023-10-21 23:34] VITALS: BP 107/62
[2023-10-21] MEDS ORDERED: MELATONIN 3 MG TAB PO PRN (23:45)
[2023-10-21] MEDS ORDERED: ACETAMINOPHEN 500 MG TAB PO PRN (23:45)
[2023-10-22] VITALS (12 sets, daily range): BP systolic 87–107; BP diastolic 56–76
--- NOTE | 2023-10-22 01:12 | NUR ---
PRN MEDICATION ADMINISTERED. pt DENIES ANY OTHER NEEDS AT THIS TIME. CALL LIGHT WITHIN.
--- NOTE | 2023-10-22 03:12 | NUR ---
pt RESTING IN THE BED WITH EYES CLOSED. RR EVEN AND UNLABORED. CALL LIGHT WITHIN REACH.
[2023-10-22 03:43] LABS: BILIRUBIN, URINE NEGATIVE (negative); BLOOD/HGB, URINE NEGATIVE (Negative); KETONE, URINE TRACE (Negative); LEUK ESTERASE, URINE NEGATIVE (negative); NITRITE, URINE NEGATIVE (negative); PH, URINE 5.5 (5-7)
[2023-10-22 03:57] LABS: AMPHETAMINES, URINE NEGATIVE (NEGATIVE); BARBITURATES, URINE NEGATIVE (NEGATIVE); BENZODIAZEPINE, URINE NEGATIVE (NEGATIVE); BUPRENORPHINE, URINE NEGATIVE (NEGATIVE); CANNABINOID, URINE NEGATIVE (NEGATIVE); COCAINE, URINE NEGATIVE (NEGATIVE); ECSTASY, URINE NEGATIVE (NEGATIVE); FENTANYL, URINE NEGATIVE (NEGATIVE); METHADONE, URINE NEGATIVE (NEGATIVE); OPIATES, URINE NEGATIVE (NEGATIVE); OXYCODONE, URINE NEGATIVE (NEGATIVE); PHENCYCLIDINE, URINE NEGATIVE (NEGATIVE)
[2023-10-22 05:25] LABS: BASOPHILS 0.5 % (0-2); EOSINOPHILS 1.1 % (0-6); HEMATOCRIT 38.9 % (35.0-50.0); HEMOGLOBIN 13.2 g/dL (12.0-18.0); LYMPHOCYTES 11.3 % (24-44); MCH 31.2 (27-36); MCV 91.9 fl (81-99); MONOCYTES 10.1 % (0-12); PLATELET COUNT 147 K/uL (140-440); RBC 4.23 M/ul (4.3-5.7); RDW 14.8 (10.5-15.0)
[2023-10-22 05:37] LABS: ANION GAP 12.7 (7-21); BUN/CREATININE RATIO 18.75 (6.0-28.6); CALCIUM 8.7 mg/dL (8.5-10.1); CREATININE, SERUM 1.28 mg/dL (0.70-1.30); MAGNESIUM 1.6 mg/dL (1.8-2.4); POTASSIUM 4.7 mmol/L (3.5-5.1)
--- NOTE | 2023-10-22 06:07 | NUR ---
pt RESTED THROUGH OUT THE NIGHT. SBA/1PA WITH FWW TO BR. pt DENIES PAIN WHEN HE IS LAYING THE BED.
--- NOTE | 2023-10-22 07:09 | NUR ---
REPORT RECEIVED FROM INTENSIVE CARE UNIT REGISTERED NURSE RN LIZA. PATIENT IS LYING ON THEIR LEFT SIDE WITH EYES CLOSED AND RESPIRATIONS ARE EVEN AND UNLABORED. CALL LIGHT AND PERSONAL BELONGINGS ARE WITHIN REACH.
[2023-10-22] MEDS ORDERED: OXYCODONE HCL 5 MG TAB PO PRN (08:15)
--- NOTE | 2023-10-22 08:39 | NUR ---
PATIENT IS LYING IN BED WITH EYES OPEN AND RESPIRATIONS ARE EVEN AND UNLABORED. IV FLUSHED WITH 10 ML NORMAL SALINE AND THE IV DRESSING IS CLEAN, DRY, AND INTACT. IV MAGNESIUM SULFATE IS INFUSING AT THIS TIME. PRN OXYCODONE ADMINISTERED FOR 8/10 BACK PAIN. LIDOCAINE PATCH REFUSED BY THE PATIENT DUE TO "IT WILL BE A BITCH TO GET ON". VITAL SIGNS TAKEN AND DOCUMENTED IN THE CHART. PATIENT STATED NO FURTHER NEEDS AT THIS TIME. CALL LIGHT AND PERSONAL BELONGINGS ARE WITHIN REACH.
[2023-10-22] MEDS ORDERED: AMIODARONE HCL 200 MG TAB PO SCH (09:00)
[2023-10-22] MEDS ORDERED: MAGNESIUM SULFATE 2 GM/50 ML BAG IV SCH (09:00)
[2023-10-22] MEDS ORDERED: LIDOCAINE HCL 4% 1 EACH PATCH TD SCH (09:00)
[2023-10-22] MEDS ORDERED: METOPROLOL SUCCINATE 50 MG TABCR PO SCH (09:00)
--- NOTE | 2023-10-22 09:07 | NUR ---
MD NOTIFIED OF THE PATIENT BP OF 90/59 WITH A MAP OF 67. HR IS 101. PATIENT WITH NO COMPLAINTS OF LIGHT HEADEDNESS OR DIZZINESS. STATED TO HOLD THE METOPROLOL AND AMIODARONE. RN EXRESSED UNDERSTANDING. NO FURTHER ORDERS AT THIS TIME.
--- NOTE | 2023-10-22 09:20 | NUR ---
FULL ASSESSMENT COMPLETE AND DOCUMENTED IN THE CHART. PATIENT IS ALERT AND ORIENTED TIMES FOUR. PATIENT IS ON ROOM AIR AND LUNG SOUNDS ARE CLEAR BILATERALLY. CARDIAC WITH NORMAL S1 AND S2 ON AUSCULTATION. CAPILLARY REFILL IN THE UPPER AND LOWER EXTREMITIES IS LESS THAN 3 SECONDS BILATERALLY. PATIENT IS ON A REGULAR DIET AND BOWEL TONES ARE ACTIVE IN ALL FOUR QUADRANTS. PATIENT WITH GENERALIZED WEAKNESS AND A HISTORY OF FALLS. PATIENT IS 1-2 PERSON ASSIST WITH THE FRONT WHEELED WALKER. PT CONSULTED. FALL MATS ARE IN PLACE. PATIENT GIVEN OXYCODONE AT 0832 FOR 8/10 IN THE MIDDLE OF THE BACK. PATIENT STATES PAIN IS A 2/10 WHEN NOT MOVING BUT IS AN 8/10 WITH MOVEMENT. PATIENT WITH NO COMPLAINTS OF NUMBNESS AND TINGLING AND SENSATION INTACT. SKIN ASSESSMENT COMPLETE WITH MG RO RN. BRUISES NOTED ON THE BILATERAL ARMS, LEGS AND LOWER BACK. REDNESS NOTED ON THE BILATERAL KNEES AND BOTTOM. REDNESS BLANCHABLE. SCABS NOTED ON THE LEFT PARTIDA AND LEFT TOE. PATIENT IV SITE IS CLEAN, DRY, AND INTACT. IV MAGNESIUM SULFATE FIRST DOSE COMPLETE. PATIENT BRACE IN PLACE WITH HELP FROM PT. PATIENT STATED NO FURTHER NEEDS AT THIS TIME. CALL LIGHT AND PERSONAL BELONGINGS ARE WITHIN REACH.
[2023-10-22 09:37] LABS: BASOPHILS 0.4 % (0-2); EOSINOPHILS 1.3 % (0-6); HEMATOCRIT 38.5 % (35.0-50.0); HEMOGLOBIN 12.9 g/dL (12.0-18.0); LYMPHOCYTES 9.6 % (24-44); MCH 31.1 (27-36); MCHC 33.5 g/dl (30-36); MCV 92.8 fl (81-99); MONOCYTES 8.8 % (0-12); NEUTROPHILS 79.9 % (39-80); PLATELET COUNT 155 K/uL (140-440); RBC 4.15 M/ul (4.3-5.7); RDW 15.1 (10.5-15.0)
--- NOTE | 2023-10-22 09:56 | NUR ---
PT IS IN THE ROOM WITH THE PATIENT AT THIS TIME.
--- NOTE | 2023-10-22 10:24 | NUR ---
GOPAL AND ROUNDED WITH THE PATIENT AT THIS TIME.
[2023-10-22] MEDS ORDERED: POLYETHYLENE GLYCOL 3350 1 PACKET PO SCH (10:38)
[2023-10-22] MEDS ORDERED: DOCUSATE SODIUM 100 MG CAP PO SCH (10:38)
--- NOTE | 2023-10-22 10:47 | NUR ---
PATIENT IS LYING IN BED WITH EYES OPEN AND RESPIRATIONS ARE EVEN AND UNLABORED. TLSO BRACE IN PLACE. PATIENT WITH PAIN RATED 8/10 IN THE MIDDLE OF BACK AFTER RECEIVING PRN OXYCODONE. 1100 MAGNESIUM SULFATE DOSE STARTED AT THIS TIME. SCDS ON AT THIS TIME WITH THE IS AT THE BEDSIDE. PATIENT STATED NO FURTHER NEEDS AT THIS TIME. CALL LIGHT AND PERSONAL BELONGINGS ARE WITHIN REACH.
--- NOTE | 2023-10-22 11:09 | NUR ---
NIRALAX AND COLACE ADMINSITERED PER THE EMAR. PATIENT EDUCATED ON HOW TO USE THE IS. PATIENT ABLE TO DEMOSTRATE FOR 10 REPITITIONS. PATIENT EXPRESSED UNDERSTANDING ON USING THE IS 10 TIMES EVERY HOUR. PATIENT STATED NO FURTHER NEEDS AT THIS TIME. CALL LIGHT AND PERSONAL BELONGINGS ARE WITHIN REACH.
--- NOTE | 2023-10-22 11:09 | NUR ---
DID HRLY ROUNDING ON PT. HE WAS SLEEPING. CALL LIGHT IS WITHIN REACH.
[2023-10-22] MEDS ORDERED: PHARMACY RENAL DOSE ADJUSTMENT 1 DOSE MISC PO SCH (12:00)
--- NOTE | 2023-10-22 12:05 | NUR ---
BP WAS 92/61 WITH A MAP OF 68. NOTIFIED AND STATED HE IS PUTTING ORDER SIN NOW.
[2023-10-22] MEDS ORDERED: LACTATED RINGER'S 500 ML IV ONE (12:15)
--- NOTE | 2023-10-22 12:24 | NUR ---
MAGNESIUM SULFATE INFUSION COMPLETE. IV IN THE RAC FLUSHED WITH 10 ML NORMAL SALINE. IV DRESSING IS CLEAN, DRY, AND INTACT. IV LR BOLUS IS INFUSING PER THE EMAR. PATIENT IS RESTING WITH EYES CLOSED AND RESPIRATIONS ARE EVEN AND UNLABORED. PATIENT LUNCH TRAY REMOVED PER PATIENT REQUEST. PATIENT STATED NO FURTHER NEEDS AT THIS TIME. CALL LIGHT AND PERSONAL BELONGINGS ARE WITHIN REACH.
--- NOTE | 2023-10-22 13:10 | NUR ---
PATIENT IS LYING IN BED WITH EYES CLOSED AND RESPIRATIONS ARE EVEN AND UNLABORED. TLSO BRACE IN PLACE. PATIENT IS SITTING IN THE CHAIR AT BEDSIDE. BREANA MELENDEZ IS GETTING VITAL SIGNS AT THIS TIME. CALL LIGHT AND PERSONAL BELONGINGS ARE WITHIN REACH.
--- NOTE | 2023-10-22 13:31 | NUR ---
NOTIFIED OF THE PATIENTS BP OF 81/59 WITH A MAP OF 60. HR IS 100. PATIENT WITH NO COMPAINTS OF LIGHT-HEADEDNESS OR DIZZINESS. PATIENT FEELING TIRED AND HAS THREE VISITORS AT THE BEDSIDE. PUT IN ORDER FOR LASIX. NO FURTHER ORDERS AT THIS TIME. CALL ENDED.
[2023-10-22] MEDS ORDERED: FUROSEMIDE 40 MG/4 ML VIAL IV ONE (13:45)
--- NOTE | 2023-10-22 13:51 | NUR ---
NOTIFIED OF THE BP OF WITH A MAP OF 73 AFTER HAVE TLSO BRACE REMOVED. HR IS 100. STATED TO HOLD THE LASIX AT THIS TIME. WITH NO FURTHER ORDERS. CALL ENDED.
--- NOTE | 2023-10-22 14:09 | NUR ---
PATIENT IS LYING IN BED WITH THE HOB ELEVATED. MD STATED SINCE PATIENT IS ASYMPTOMATIC IT IS OKAY TO RECHECK BP AT 1800 UNLESS THERE IS A CLINICAL CHANGE. PATIENT IS IN BED SPEAKING WITH HIS WHO IS SITTING IN THE CHAIR AT BEDSIDE. PATIENT STATED NO FURTHER NEEDS AT THIS TIME. CALL LIGHT AND PERSONAL BELONGINGS ARE WITHIN REACH.
--- NOTE | 2023-10-22 15:07 | NUR ---
PATIENT IS LYING IN BED WITH 4 VISITORS IN THE ROOM AT THIS TIME. PATIENT WITH PAIN RATED 8/10 ESPECIALLY WITH MOVEMENT. PATIENT RATED NO PAIN WITH NO MOVEMENT. PRN OXYCODONE ADMINISTERED PER THE EMAR. PATIENT IS ON ROOM AIR AND LUNG SOUNDS ARE CLEAR BILATERALLY IN ALL LUNG JIMENEZ. PATIENT USED THE IS WITH THE RN AT BEDSIDE. [place] OF ICE WATER IS ON THE BEDSIDE TABLE AT THIS TIME. BLOOD PRESSURE TAKEN AND IS DOCUMENTED IN THE CHART. PATIENT STATED NO FURTHER NEEDS AT THIS TIME. CALL LIGHT AND PERSONAL BELONGINGS ARE WITHIN REACH.
--- NOTE | 2023-10-22 16:14 | NUR ---
PATIENT VISITORS LEFT. PATIENT IS LYING IN BED WITH HOB ELEVATED WITH EYES CLOSED AND RESPIRATIONS ARE EVEN AND UNLABORED. CALL LIGHT AND PERSONAL BELONGINGS ARE WITHIN REACH.
--- NOTE | 2023-10-22 17:31 | NUR ---
PATIENT IS SITTING UPRIGHT IN BED WITH EYES CLOSED AND RESPIRATIONS ARE EVEN AND UNLABORED. VITAL SIGNS TAKEN AND DOCUMENTED IN THE CHART. INTAKE AND OUTPUT VALUES DOCUMENTED. IV PUMP CLEARED AT THIS TIME. PATIENT GIVEN A FRESH CUP OF ICE WATER PER PATIENT REQUEST. DINNER TRAY REMOPVED AT THIS TIME. PATIENT STATED NO FURTHER NEEDS. CALL LIGHT AND PERSONAL BELONGINGS ARE WITHIN REACH.
--- NOTE | 2023-10-22 18:08 | NUR ---
PATIENT IS LYING IN BED WITH THE HOB ELEVATED. PATIENT WITH EYES CLOSED AND RESPIRATIONS ARE EVEN AND UNLABORED. CALL LIGHT AND PERSONAL BELONGINGS ARE WITHIN REACH.
--- NOTE | 2023-10-22 19:35 | NUR ---
BEDSIDE REPORT...PATIENT RESTING IN BED, EYES CLOSED RESPIRATIONS 16/MIN, NO DISTRESS NOTED AT THIS TIME.
--- NOTE | 2023-10-22 20:32 | NUR ---
PATIENT UP TO BATHROOM TO VOID. BACK TO BED, HE REPORTS PAIN IS "PRETTY GOOD" NO NEED FOR PAIN COVERAGE AT THIS TIME. V/S AND ASSESSMENT COMPLETE, B/P LOW, IN ROOM ROUNDING NOTED LOW B/P. TALKED ABOUT PATINET HAVING HF AND FAMILY REPORTS HIS BASELINE IS LOW.
--- NOTE | 2023-10-22 20:38 | NUR ---
HELPED PT GO TO THE BATHROOM, ADJUSTED BED SO HE COULD SLEEP ON HIS LEFT SIDE, PUT SCD'S BACK ON, TOOK VS, AND BED ALARM BACK ON
[2023-10-22] MEDS ORDERED: LIDOCAINE PATCH REMOVAL 1 EA TD SCH (21:00)
--- NOTE | 2023-10-22 22:02 | NUR ---
CREDIT SUPPORT SPECIALIST HELPED PT USE BATHROOM AND THEN BACK TO BED.
--- NOTE | 2023-10-22 23:02 | NUR ---
PATIENT RESTING IN BED, HE IS MOVING HIS LEGS AROUND IN BED. HE DENIES NEED FOR PAIN MEDICATIONS.
[2023-10-23] VITALS (7 sets, daily range): BP systolic 101–123; BP diastolic 62–82
--- NOTE | 2023-10-23 00:25 | NUR ---
PATIENT USED CALL LIGHT TO REQUEST ASSISTANCE TO BATHROOM, BREANA BARBOZA TO ASSIST. ONCE PATIENT BACK TO BED THIS RN INTO PATIENT ROOM TO ASSESS PATIENT PAIN, THIS RN SAID, "JENNIE, ITS BEEN AWHILE SINCE YOU HAVE HAD PAIN MEDICATIONS, HOW ARE YOU FEELING?" PATIENT SAID, "I THINK I COULD USE SOME" THIS RN ADMINISTERED 5MG PO OXYCODONE PRN FOR RIB AND BACK PAIN.
[2023-10-23 05:21] LABS: BASOPHILS 0.5 % (0-2); EOSINOPHILS 4.3 % (0-6); HEMATOCRIT 35.4 % (35.0-50.0); HEMOGLOBIN 11.9 g/dL (12.0-18.0); LYMPHOCYTES 12.2 % (24-44); MCH 31.1 (27-36); MCHC 33.6 g/dl (30-36); MCV 92.6 fl (81-99); MONOCYTES 9.8 % (0-12); NEUTROPHILS 73.2 % (39-80); PLATELET COUNT 144 K/uL (140-440); RBC 3.83 M/ul (4.3-5.7); RDW 14.8 (10.5-15.0)
[2023-10-23 05:32] LABS: ANION GAP 7.6 (7-21); BUN/CREATININE RATIO 23.96 (6.0-28.6); CALCIUM 8.4 mg/dL (8.5-10.1); CREATININE, SERUM 1.21 mg/dL (0.70-1.30); MAGNESIUM 2.2 mg/dL (1.8-2.4); POTASSIUM 4.6 mmol/L (3.5-5.1)
--- NOTE | 2023-10-23 05:48 | NUR ---
PATIENT HAS SLEPT WELL OVER NIGHT INTERMITTEN BETWEEN NEED TO AMBULATE TO BATHROOOM TO VOID 5 TIMES, ONE PERSON WITH FWW. HE HAS REPORTED PAIN 2/10 AT REST AND 8/10 WITH ACTIVITY. THIS AM WITH ACTIVITY HE NEED 1L OXYGEN TO MAINTAIN >90% OXYGEN SATURATION, HE WAS NOTED TO BE LOW 86% ON ROOM AIR.
--- NOTE | 2023-10-23 07:21 | NUR ---
Pt report received from GOPAL Alston. Pt is asleep in bed on his right side. Breathing is regular, even, and non-labored. Call light in reach, side rails up. White board updated.
--- NOTE | 2023-10-23 07:42 | CONS ---
[facility] [address] [place], [place] [address] Signed DATE OF CONSULTATION: 10/22/2023 CHIEF COMPLAINT: Ground-level fall. HISTORY OF PRESENT ILLNESS: Kvng is an 87-year-old gentleman, who is having frequent falls for more than one year. Despite this, he remains on Eliquis. He has a history of osteopenia and degenerative disc disease with multiple surgeries on his back. He is known to have AFib and heart failure as well. He has been currently living at home with his , Nayla. Apparently, she has been discouraging him from being placed outside their home. Amazingly, she developed a GI bleed yesterday and he fell once again. They both ended up in our hospital last night. Kvng went through a long list of CT scans in the emergency room. He has chronic rib fractures on the left anterolateral area of ribs 4 and 6. He has acute right rib fractures posterior and medial ribs 6 through 9 as well as an acute T10 compression fracture without retropulsion or loss of vertebral height. He has just a small right pulmonary contusion with a little bit of hematoma underneath the pleura and a little bit hemothorax on that side. The chest x-ray x2 cannot see the rib fractures nor the small hemothorax. Of course, his Eliquis has been held. He may also have rdfdg-vd-vtxikyq sinusitis. He does not seem to complain of any facial pain. He did get a dose of Toradol in the ER, but now is on oxycodone. He said he tends towards constipation. Overnight, he has done well. He has his TLSO brace in place and participated with physical therapy this morning. I think his back and his ribs are a bit painful and that bothers him the most. He is eating a regular breakfast and did well in that regard. He has no IV fluids running. No antibiotics. PAST MEDICAL HISTORY: Osteopenia, degenerative disc disease, coronary artery disease, atrial fibrillation, congestive heart failure, recurrent frequent falls, hyperlipidemia, benign prostatic hyperplasia, chronic interstitial lung disease, and constipation. PAST SURGICAL HISTORY: Includes bilateral cataract surgery, spinal stimulator at T7, T8, which he said never really helped and fusion from L4 through S1 with eleazar screws and intervertebral graft spacers. SOCIAL HISTORY: He does not smoke. He likes to drink a little and likes to chew. Dr. Bonnie Chopra is his primary care provider. He prefers the [facility]. His is Nayla at . He uses a walker to ambulate. He is a DNR, DNI. FAMILY HISTORY: His father had leukemia. Electronically Signed By: DEBBIE LEACH MD 10/23/23 0742 PATIENT NAME: KVNG MEDRANO CONSULTATION DATE OF : 37 REPORT #: [id number] PHYSICIAN: DEBBIE LEACH MD PCP: BONNIE CHOPRA MD REPORT IS CONFIDENTIAL AND NOT TO BE RELEASED WITHOUT AUTHORIZATION [address] [address] Signed REVIEW OF SYSTEMS: He had 10 systems reviewed and he really has a good mind for detail, but nothing new added after a thorough chart review. ALLERGIES: None. MEDICATIONS: Eliquis, vitamin C, Icaps, tramadol, trazodone, tamsulosin, vitamin D, metoprolol, Entresto, atorvastatin, amiodarone, bisacodyl, and Metamucil. PHYSICAL EXAMINATION: VITAL SIGNS: His blood pressure is 90/59, his heart rate is 101, respiratory rate 18, temperature is 97.7, and he is 94% to 99% on room air. He is 5 feet 10 inches tall, 78 kg with a body mass index of 24. GENERAL: Kvng is an 87-year-old gentleman lying supine semi-recumbent in his hospital bed. Our nurse is with us. He has his TLSO brace in place. He has an excellent mind for details. He can tell he has a little pain with his back with movement. LUNGS: Clear to auscultation bilaterally. HEART: Regular rate and rhythm, without murmurs. ABDOMEN: Soft, flat, nontender. EXTREMITIES: I did not roll him over or take off his back brace. LABORATORY DATA: His white blood cell count was 12.3, is now 9.1; hemoglobin is 15.3, it is now 13.2; his neutrophils are 81 and now 77, and his platelet count was 147, it is now 155. His creatinine is 1.28, magnesium is 1.6. Urine was clear, but the specific gravity is greater than 1.030. Urine drug screen was negative. Alcohol was negative. Albumin is 3.4. Liver function tests were negative. RADIOGRAPHIC STUDIES: He had a CT scan of his entire spine, head, and chest. He may have yhaqs-ml-mhzubqj maxillary sinusitis. He has a T10 nondisplaced vertebral compression fracture. He has rib fractures 6 through 9 posterior medially. He has some chronic left anterior medial rib fractures 4 and 6. It looks like he may have some compression or compression fractures of T7 through T10 as well. He has some interstitial lung disease and bronchiectasis. He has the small right hemothorax. He has a little bit of hematoma underneath the right subpleural area next to those rib fractures. The upper abdomen was unremarkable. The two chest x-rays see the chronic interstitial lung disease, but nothing else. ASSESSMENT/PLAN: Kvng is an 87-year-old gentleman, who has acute rib fractures 6-9 posterior and Electronically Signed By: DEBBIE LEACH MD 10/23/23 0742 PATIENT NAME: KVNG MEDRANO CONSULTATION DATE OF : 37 REPORT #: [id number] PHYSICIAN: DEBBIE LEACH MD PCP: BONNIE CHOPRA MD REPORT IS CONFIDENTIAL AND NOT TO BE RELEASED WITHOUT AUTHORIZATION [facility] [address] [place], [place] [address] Signed laterally. He will need some pain medicine for that. He has the acute T10 compression fracture utilizing his TLSO brace along with PT and OT. Of course, the Eliquis has been held and should be held indefinitely. He may have fcnyh-pj-hscdqpn sinusitis, but he is not on any antibiotics at this time. I will leave that up to the hospitalist service. He has a small right hemothorax and repeat chest x-ray was unremarkable. His hemoglobin has dropped a little, but of course he has been hydrated as well. He has a small right pleural contusion with small subpleural hematoma, that resolve on its own and we have added some incentive spirometry to his OT and PT. I have reviewed this with Kvng, the nurse and Dr. Serrano. Otherwise, no new general surgical input. Debbie Leach MD ALB/MODL /[id number] cc: MD Dr. Bonnie Emmanuel Copies: DEBBIE LEACH MD ~ Electronically Signed By: DEBBIE LEACH MD 10/23/23 0742 PATIENT NAME: KVNG MEDRANO CONSULTATION DATE OF : 37 REPORT #: [id number] PHYSICIAN: DEBBIE LEACH MD PCP: BONNIE CHOPRA MD REPORT IS CONFIDENTIAL AND NOT TO BE RELEASED WITHOUT AUTHORIZATION
--- NOTE | 2023-10-23 07:50 | NUR ---
Dr. Leach in to consult on this pt. Dr. Leach suggested tele to monitor his heart for a while. Requested this from Dr. Serrano who ok'd an order for telemetry and orthostatic blood pressure readings.
[2023-10-23] MEDS ORDERED: bisacodyL 5 MG TABEC PO ONE (08:00)
[2023-10-23] MEDS ORDERED: CALCIUM GLUCONATE 1,000 MG/10 ML VIAL IV ONE (08:00)
[2023-10-23] MEDS ORDERED: FUROSEMIDE 40 MG/4 ML VIAL IV ONE (08:15)
[2023-10-23] MEDS ORDERED: MAGNESIUM CITRATE 300 ML BTL PO ONE (08:15)
--- NOTE | 2023-10-23 08:21 | NUR ---
PATIENT IS ON TELE 10, EKG IS BEING DONE NOW.
[2023-10-23] MEDS ORDERED: TAMSULOSIN HCL 0.4 MG CAP PO SCH (09:00)
--- NOTE | 2023-10-23 09:27 | NUR ---
PHYSICAL THERAPIST, DEREK, IN WITH PT, ASSISTING WITH ORTHOSTATICS. PT REPORTS PAIN INCREASES WITH MOVEMENT, SHALLOW RAPID BREATHING WHEN MOVING, HOLDING HIS BREATH AT TIMES. ENCOURAGED PT TO NOT HOLD HIS BREATH AND TO TAKE SLOW DEEP BREATHS. PT SPO2 DECREASES WITH ACTIVITY AND INCREASED PAIN, WHILE PHYSICAL THERAPY IS IN WITH HIM, HE IS ON 2LPM O2 NC. ORTHOSTATIC VALUES OBTAINED.
[2023-10-23] MEDS ORDERED: CALCIUM GLUCONATE 2,000 MG in DEXTROSE 5% 100 ML IV SCH (10:00)
[2023-10-23] MEDS ORDERED: FUROSEMIDE 40 MG/4 ML VIAL ONE (10:37)
[2023-10-23] MEDS ORDERED: bisacodyL 5 MG TABEC ONE (10:42)
[2023-10-23] MEDS ORDERED: METOPROLOL TARTRATE 25 MG TAB PO SCH (12:00)
--- NOTE | 2023-10-23 12:17 | NUR ---
Pt up to void in toilet, aide Lidia with pt. Pt back to bed, pt taking short shallow breaths d/t pain increase with activity. O2 increased to 2lpm while he catches his breath once back in bed. PO metoprolol administered per emar at this time. Pt is still eating lunch. IV is s/l while he eats as it continually alarms d/t it being in the a/c. Calcium gluconate is still needing to finish. Will restart it after he eats.
--- NOTE | 2023-10-23 16:55 | NUR ---
Pt up to void in toilet with 1PA with FWW, at bedside. Pt dribbled some urine in his underwear and was provided with fresh briefs. 1PA with fww pt back to bed, 2-person boost pt up in bed, scd's on, side rails up. Pt reports pain is 8 out of 10, for which he was given 5mg oxycodone per emar, as his dinner tray arrived.
[2023-10-23] MEDS ORDERED: AMIODARONE HCL 200 MG TAB ONE (17:09)
[2023-10-23] MEDS ORDERED: Methylnaltrexone Bromide 12 MG/0.6 ML VIAL SUB-Q ONE (17:15)
--- NOTE | 2023-10-23 18:46 | EKG ---
[facility] [address] [place] [address] Signed Sinus tachycardia with 1st degree AV block Left axis deviation Inferior infarct , age undetermined Abnormal ECG When compared with ECG of 17-SEP-2021 11:58, Sinus rhythm has replaced Atrial fibrillation Vent. rate has decreased BY 64 BPM Inferior infarct is now present Confirmed by Nadine Serrano MD ([id number]) on 10/23/2023 6:46:28 PM Electronically Signed By: NADINE SERRANO MD 10/23/23 1846 PATIENT NAME: KVNG MEDRANO Electrocardiogram DATE OF : 37 PHYSICIAN: NADINE SERRANO MD REPORT #: [id number] REPORT IS CONFIDENTIAL AND NOT TO BE RELEASED WITHOUT AUTHORIZATION
--- NOTE | 2023-10-23 19:44 | NUR ---
REPORT RECEIVED FROM DAY SHIFT RN. PT LYING IN BED ALERT AND ORIENTED. DENIES NEEDS. WHITE BOARD UPDATED. CALL LIGHT IN REACH.
--- NOTE | 2023-10-23 20:27 | NUR ---
EVENING ASSESSMENT COMPLETE. SCHEDULED MEDS ADMIN PER EMAR. PT REPORTS RIGHT CHEST/BACK PAIN 09/23. PRN FOR PAIN ADMIN PER EMAR. PRN FOR SLEEP ADMIN PER REQUEST. PT UP TO BR WITH FWW AND SBA TO VOID AN UNMEASURED AMOUNT. BACK TO BED, TINO WELL. GAIT STEADY. PT REPORTS SLIGHT SOB WITH ACTIVITY. 1L/NC IN PLACE. SpO2 MID 90'S. LUNGS CLEAR THROUGHOUT. PT DENIES QUESTIONS OR CONCERNS. CALL LIGHT IN REACH. BED ALARM FOR SAFETY.
--- NOTE | 2023-10-23 21:15 | NUR ---
PATIENT CALLED C/O PAIN ON THE BACK AND WANTING TO TURN TO SIDES. PATIENT TRIED TO LAY ON HIS LEFT SIDE FOR A FEW MINUTES. PATIENT IS LAYING ON HIS RIGHT SIDE AT THIS TIME. WARM PACK WRAPPED WITH PILLOW CASE PER PATIENT PROVIDED.
--- NOTE | 2023-10-23 22:29 | NUR ---
PATIENT CALLED TO USE THE BATHROOM. 1PA. USING WALKER. PATIENT VOIDED UNMEASURED. PATIENT IS BACK IN BED. NO WARM PACK THIS TIME. PATIENT DENIES FURTHER NEED OR CARE THIS TIME. BED ALARM ON FOR SAFETY.
--- NOTE | 2023-10-23 23:31 | NUR ---
CALL LIGHT ANSWERED. PT UP TO BR WITH FWW AND SBA TO VOID APPROX 50 ML YELLOW URINE. BACK TO BED. TINO WELL. REPORTS BACK/RIB PAIN 09/23. PRN FOR PAIN ADMIN PER EMAR. ASSISTED TO REPOSITION WITH PILLOWS. NO FURTHER NEEDS.
[2023-10-24] VITALS (9 sets, daily range): BP systolic 93–129; BP diastolic 63–81
--- NOTE | 2023-10-24 01:23 | NUR ---
PATIENT GOT UP TO USE THE BATHROOM SBA USING WALKER. VOIDED 100ML YELLOW URINE. PATIENT IS BACK IN BED. NO OTHER NEEDS AT THIS TIME. BED ALARM ON FOR SAFETY.
--- NOTE | 2023-10-24 02:34 | NUR ---
PATIENT USED THE CALL LIGHT. UP TO THE BATHROOM. VOIDED 175ML YELLOW URINE. PATIENT IS BACK IN BED. NO OTHER NEEDS AT THIS TIME. BED ALARM ON.
--- NOTE | 2023-10-24 03:54 | NUR ---
PT RESTING IN BED WITH EYES CLOSED. RESPIRATIONS EVEN. CALL LIGHT IN REACH.
--- NOTE | 2023-10-24 04:23 | NUR ---
CALL LIGHT ANSWERED. PT UP TO BR WITH 1PA AND FWW TO VOID. BACK TO BED, TINO FAIR. REPORTS BACK/RIB PAIN 09/23. PRN FOR PAIN ADMIN PER EMAR. ASSESSMENT COMPLETE. NO FURTHER NEEDS. BED ALARM FOR SAFETY. CALL LIGHT IN REACH.
[2023-10-24 05:28] LABS: BASOPHILS 0.5 % (0-2); EOSINOPHILS 3.7 % (0-6); HEMATOCRIT 35.7 % (35.0-50.0); LYMPHOCYTES 11.4 % (24-44); MCH 30.9 (27-36); MCHC 33.5 g/dl (30-36); MCV 92.2 fl (81-99); MONOCYTES 11.6 % (0-12); NEUTROPHILS 72.8 % (39-80); PLATELET COUNT 146 K/uL (140-440); RBC 3.87 M/ul (4.3-5.7); RDW 14.8 (10.5-15.0)
[2023-10-24 05:43] LABS: ANION GAP 10.7 (7-21); BUN/CREATININE RATIO 20.66 (6.0-28.6); CALCIUM 8.7 mg/dL (8.5-10.1); CREATININE, SERUM 1.21 mg/dL (0.70-1.30); MAGNESIUM 1.7 mg/dL (1.8-2.4); POTASSIUM 4.7 mmol/L (3.5-5.1)
--- NOTE | 2023-10-24 06:30 | NUR ---
PATIENT WAS UP TO THE BATHROOM VOIDED 200ML YELLOW URINE. BACK TO BED. NO OTHER NEEDS EXPRESSED. BED ALARM ON.
--- NOTE | 2023-10-24 07:25 | NUR ---
REPORT RECIEVED FROM GOPAL LEIVA. PT RESTING IN BED. CALL LIGHT IN REACH.
--- NOTE | 2023-10-24 08:24 | NUR ---
PATIENT CALLED TO USE RESTROOM. THIS ACRYLIC FABRICATOR IN TO ASSIST PATIENT. UP TO BATHROOM THEN TO CHAIR FOR BREAKFAST, 1PA FWW. WARM BLANKET GIVEN. CHAIR ALARM. CALL LIGHT IN REACH. NO FURTHER NEEDS AT THIS TIME.
[2023-10-24] MEDS ORDERED: MAGNESIUM SULFATE 2 GM/50 ML BAG IV ONE (09:00)
--- NOTE | 2023-10-24 09:36 | NUR ---
SHIFT ASSESSMENT COMPLETE. MEDS ADMIN PER EMAR. C/O 04/23 PAIN WHEN HE DOES NOT MOVE BUT STATES "IT IS AN 8 WHEN I MOVE". DENIES ANY NEEDS AT THIS TIME, CALL LIGHT IN REACH
--- NOTE | 2023-10-24 09:37 | NUR ---
VISITED DURING SPIRITUAL CARE ROUNDS. PT APPEARED TO BE SLEEPING. DID NOT DISTURB. PROVIDED PRAYER.
--- NOTE | 2023-10-24 09:39 | NUR ---
SPOKE TO PATIENT ABOUT THE DISCHARGE PLAN. PATIENT HAS FALLEN FREQUENTLY WHILE USING HIS WALKER AND CANE. PATIENT WOULD LIKE TO GO HOME BUT UNDERSTANDS THAT HE MIGHT NEED PLACEMENT. PATIENT STATES HIS WANTS THE PATIENT TO GO HOME WHEN DISCHARGED. THE DC AUDIO/VISUAL OPERATOR DISCUSSED THE NEED FOR A SAFE DC FOR WHEN THE PATIENT GOES HOME. PATIENT USES A WALKER AND WHEELCHAIR AND HAS [address] THE HOUSE. PATIENT ALSO WILL NEED TO WEAR A BACK BRACE ORDERED BY MD. PATIENT DEMOGRAPHICS ARE CORRECT. MONEY IS NOT AN ISSUE.PATIENT IS NOT READY FOR DC BECAUSE HE IS HAVING ISSUES WITH THE BACK BRACE AND LOW BLOOD PRESSURES AND CONSTIPATION.THE PATIENT WILL LET DC AUDIO/VISUAL OPERATOR KNOW WHEN HIS COMES TO VISIT SO A DISCUSSION CAN HAPPEN ABOUT THE NEED FOR A SAFE DC.
--- NOTE | 2023-10-24 10:02 | NUR ---
UR CLINICAL REVIEW: 2 MN FOR [facility] INPT CRITERIA MEDICARE INPT 10/21/23 @ 2244 ORDER MATCHES REG NO AUTH REQUIRED PER MEDICARE GUIDELINES POSSIBLE DISCHARGE TO SNF VS HOME PENDING FURTHER DISCUSSION WITH FAMILY AND PT RECOMMENDATION
[2023-10-24] MEDS ORDERED: bisacodyL 10 MG SUPP PR ONE (10:15)
--- NOTE | 2023-10-24 10:43 | NUR ---
PT WORKING WITH OT.
--- NOTE | 2023-10-24 11:26 | NUR ---
PT UP TO BR 1 PA W FWW. BACK TO BED. SUPPOSITORY ADMIN PER EMAR. PT NOW RESTING IN BED. DENIES ANY NEEDS AT THIS TIME, CALL LIGHT IN REACH
--- NOTE | 2023-10-24 12:50 | NUR ---
PT BACK TO BED FROM BR, 1 PA W FWW. PT HAD A PEBBLE SIZED HARD STOOL. GUAIAC WAS NEG. DENIES ANY NEEDS AT THIS TIME, CALL LIGHT IN REACH
--- NOTE | 2023-10-24 14:12 | NUR ---
SPOKE TO PATIENT ABOUT THE DISCHARGE PLAN. PATIENT AND WOULD LIKE HOME HEALTH WHEN THE PATIENT IS DISCHARGED. ALSO, THE WILL CALL FAMILY [employer]OURCES TO SEE IF THERE ARE CAREGIVERS THAT CAN HELP. PATIENT AND DO NOT WANT SNIF AT THIS TIME. ENCOURAGED PATIENT AND TO THINK ABOUT SNF AND LET DC PLANNING KNOW IF THEY CHANGE THEIR MINDS.
--- NOTE | 2023-10-24 14:27 | NUR ---
PT RESTING IN BED. AT BEDSIDE. SHIFT ASSESSMENT COMPLETE. PT HAD XL BM. GUAIAC NEG. ICE WATER PROVIDED. DENIES ANY PAIN AT REST. DENIES ANY NEEDS AT THIS TIME, CALL LIGHT IN REACH
--- NOTE | 2023-10-24 15:00 | NUR ---
PT CALL LIGHT ANSWERED, PT UP TO BR 1 PA FWW. BACK TO BED. DENIES ANY NEEDS AT THIS TIME, CALL LIGHT IN REACH
--- NOTE | 2023-10-24 16:04 | NUR ---
PT RESTING IN BED, IN ROOM. CALL LIGHT IN REACH
--- NOTE | 2023-10-24 17:42 | NUR ---
PT SITTING UP IN BED EATING MEAL. AT BEDSIDE. DENIES ANY NEEDS AT THIS TIME, CALL LIGHT IN REACH
--- NOTE | 2023-10-24 19:20 | NUR ---
REPORT RECEIVED FROM DAY SHIFT RN. PT LYING IN BED ALERT AND ORIENTED. TO BR WITH CAREER DEVELOPMENT SPECIALIST ASSIST. NO NURSING NEEDS AT THIS TIME. WHITE BOARD UPDATED. CALL LIGHT IN REACH.
--- NOTE | 2023-10-24 19:30 | NUR ---
ASSISTED PATIENT TO USE THE BATHROOM. OFFERED FRESH PULL UP. PATIENT VOIDED 150ML YELLOW URINE. PATIENT WENT BACK TO BED. NO OTHER NEEDS AT THIS TIME. BED ALARM ON FOR SAFETY.
--- NOTE | 2023-10-24 20:05 | NUR ---
PATIENT CALLED TO USE THE BATHROOM. SBA. USING WALKER. PATIENT IS BACK IN BED. NO FURTHER NEEDS EXPRESSED. BED ALARM ON FOR SAFETY.
--- NOTE | 2023-10-24 20:43 | NUR ---
PT RESTING WITH EYES CLOSED. AWAKENS EASILY. EVENING ASSESSMENT COMPLETE. SCHEDULED MEDS ADMIN PER EMAR. PT ON RA. SpO2 97%. PT DENIES SOB. LUNGS CLEAR THROUGHOUT. PT ABLE TO REPOSITION SELF IN BED TO RIGHT SIDE. SCD'S IN PLACE. VS AND I&O OBTAINED. NO FURTHER NEEDS. CALL LIGHT IN REACH. BED ALARM FOR SAFETY.
--- NOTE | 2023-10-24 21:21 | NUR ---
PATIENT UP TO THE BATHROOM UTILIZED THE CALL LIGHT VOIDED 200ML YELLOW URINE AND BACK TO BED. NO FURTHER NEEDS EXPRESSED. BED ALARM ON. CALL LIGHT IN HIS HAND. SCD'S ON.
--- NOTE | 2023-10-24 22:05 | NUR ---
UP TO THE BATHROOM SBA USING WALKER. VOIDED 125ML. BACK IN BED. SCD'S ON. BED ALARM ON. LAYING ON HIS RIGHT SIDE THIS TIME. CALL LIGHT IN HAND.
--- NOTE | 2023-10-24 23:24 | NUR ---
PATIENT UP TO RESTROOM TO VOID, APPROX 200ML OF CLEAR YELLOW URINE NOTED. PATIENT BACK TO BED. PT REPORTS INSOMNIA, ADMIN TRAZODONE 50MG PO AT THIS TIME. BED ALARM IN PLACE.
[2023-10-25] VITALS (12 sets, daily range): BP systolic 91–129; BP diastolic 61–93
--- NOTE | 2023-10-25 00:11 | NUR ---
PT UP TO BR WITH NEUROPSYCHOLOGIST ASSIST. BACK TO BED. REPORTS RIB/BACK PAIN 5/10 AT REST AND 8/10 WITH ACTIVITY. PRN FOR PAIN ADMIN PER EMAR. NO FURTHER NEEDS.
--- NOTE | 2023-10-25 02:10 | NUR ---
PT UP TO BR WITH SBA AND FWW TO VOID. BACK TO BED, TINO WELL. VS OBTAINED. ASSESSMENT COMPLETE. NO C/O PAIN AFTER RETURNING TO BED. NO FURTHER NEEDS.
--- NOTE | 2023-10-25 05:02 | NUR ---
Pt ambulated to BR w/ SBA and FWW. Voids w/o difficulty. VSS. Call light within reach. Denies further needs.
[2023-10-25 05:30] LABS: BASOPHILS 0.8 % (0-2); EOSINOPHILS 3.8 % (0-6); HEMATOCRIT 38.2 % (35.0-50.0); HEMOGLOBIN 12.8 g/dL (12.0-18.0); MCH 31.1 (27-36); MCHC 33.4 g/dl (30-36); MCV 92.9 fl (81-99); MONOCYTES 12.4 % (0-12); PLATELET COUNT 150 K/uL (140-440); RBC 4.11 M/ul (4.3-5.7); RDW 15.2 (10.5-15.0)
[2023-10-25 05:42] LABS: ANION GAP 11.9 (7-21); BUN/CREATININE RATIO 19.82 (6.0-28.6); CALCIUM 8.7 mg/dL (8.5-10.1); CREATININE, SERUM 1.16 mg/dL (0.70-1.30); POTASSIUM 4.9 mmol/L (3.5-5.1)
--- NOTE | 2023-10-25 07:27 | NUR ---
PT RESTING EYES CLOSED AT TIME OF SHIFT REPORT, LEFT UNDISTURBED. AWAKE NOW, JUST RETURNS FROM THE BATHROOM. MOVING IS VERY PAINFUL, PT AGREES IT SUBSIDES AT REST. FRESH H20 TO BEDSIDE CALL LIGHT AND NEEDED ITEMS IN REACH. PT DENIES OTHER NEEDS AT THIS TIME
--- NOTE | 2023-10-25 07:37 | NUR ---
PATIENT IN BED AT THIS TIME. REPAIRER ASSISTED PATIENT TO BATHROOM AND HAVING PATIENT USE FRONT WHEELED WALKER. CALL LIGHT WITHIN REACH, NO FURTHER NEEDS AT THIS TIME.
--- NOTE | 2023-10-25 08:18 | NUR ---
PATIENT IN CHAIR AT THIS TIME. REEL FED PRINTER ASSISTED PATIENT TO BATHROOM AND THEN BACK TO THE CHAIR. CALL LIGHT WITHIN REACH, NO FURTHER NEEDS AT THIS TIME.
--- NOTE | 2023-10-25 08:24 | NUR ---
PT UP TO THE CHAIR FOR MORNING MEAL
--- NOTE | 2023-10-25 10:01 | NUR ---
PT RETURNS TO RESTING IN BED AFTER BEING UP IN THE CHAIR FOR QUITE SOME TIME. MEDICATED WITH BOTH OXY AND TYLENOL IN ANTICIPATION OF PT/OT WELL BASELINE PAINFUL MOVEMENT. PT RESTING EYES CLOSED AT THIS TIME
--- NOTE | 2023-10-25 10:36 | NUR ---
PT RESTING EYES CLOSED CALL LIGHT AND NEEDED ITEMS IN REACH
--- NOTE | 2023-10-25 10:46 | NUR ---
PATIENT IN BED AT THIS TIME. VITALS AND I&O'S CHARTED. THERAPEUTIC MENTOR ASSISTED PATIENT TO BATHROOM AND THEN BACK TO BED. THERAPEUTIC MENTOR ALSO PROVIDED PATIENT WITH FRESH LINENS. CALL LIGHT WITHIN REACH, NO FURTHER NEEDS AT THIS TIME.
--- NOTE | 2023-10-25 10:47 | NUR ---
VISITED DURING SPIRITUAL CARE ROUNDS. PT APPEARED TO BE SLEEPING. DID NOT DISTURB. PROVIDED PRAYER.
--- NOTE | 2023-10-25 11:11 | NUR ---
PATIENT IN BED AT THIS TIME. RESAW FEEDER ASSISTED PATIENT TO BATHROOM WITH FRONT WHEELED WALKER AND THEN BACK TO THE BED. CALL LIGHT WITHIN REACH, NO FURTHER NEEDS AT THIS TIME.
--- NOTE | 2023-10-25 11:20 | NUR ---
In and spoke with David. He states he has "tremendous back pain". We discussed what his wishes are. Pt would like to go home, but feels he will not be able to do so. His will be in later. I asked staff if they could notify me and I will return to discuss a plan with her.
--- NOTE | 2023-10-25 11:55 | NUR ---
PATIENT IN BED AT THIS TIME. CALL LIGHT WITHIN REACH, NO FURTHER NEEDS A THIS TIME.
--- NOTE | 2023-10-25 12:38 | NUR ---
PT UP TO TOILET REFUSES CHAIR FOR NOON MEAL STATING IT HURTS HIS BACK AND HE IS MORE COMFORTABLE IN THE BED. PT HAS BEEN UP TO TOILET SEVERAL TIMES AND IS MOVING AROUND WELL THOUGH IT CONTINUES TO BE PAINFUL.
--- NOTE | 2023-10-25 13:45 | NUR ---
In and spoke with Edilson and Nayla. Pt has now changed his mind. He states there is a man, Noam Khan, in [place] that helps people in their homes. His was able to speak with him in the grocery store this morning and she will hire him to assist her and Edilson. She states pt has his wc and his walker. She believes they will be ok with assistance in their home. She denies other needs. No plan for dc today.
--- NOTE | 2023-10-25 14:44 | NUR ---
PATIENT IN BED AT THIS TIME. CALL LIGHT WITHIN REACH, NO FURTHER NEEDS AT THIS TIME.
--- NOTE | 2023-10-25 15:46 | NUR ---
"JENNIE" ENDORSED RESTROOM NEEDS AND PAIN THIS HOUR. 4WHEEL WALKER USED TO GO TO RESTROOM. 100CC YELLOW URINE AND SMALL BOWEL MOVEMENT. HE IS NOW BACK IN BED AND REPOSITIONED FOR COMFORT. SPOUSE IN ROOM WITH HIM
--- NOTE | 2023-10-25 15:58 | NUR ---
PATIENT IN BED AT THIS TIME. CALL LIGHT WITHIN REACH, NO FURTHER NEEDS AT THIS TIME.
--- NOTE | 2023-10-25 17:08 | NUR ---
PATIENT IN BED AT THIS TIME. MODERN DANCER PROVIDED PATIENT WITH FRESH ICE WATER. CALL LIGHT WITHIN REACH, NO FURTHER NEEDS AT THIS TIME.
--- NOTE | 2023-10-25 17:27 | NUR ---
FWW TO IVA. PATIENT JENNIE IS BACK IN BED AND NO OTHER NEEDS ENDORSED THIS HOUR. DINNER PROVIDED. INDEPENDENT EATER WITH TRAY SET-UP
--- NOTE | 2023-10-25 18:22 | NUR ---
PATIENT IN BED AT THIS TIME. ADVERTISING INSERTER CHARTED VITALS AND I&O'S. CALL LIGHT WITHIN REACH, NO FURTHER NEEDS AT THIS TIME.
--- NOTE | 2023-10-25 18:42 | NUR ---
PATIENT IN BED AT THIS TIME. LAB REP ASSISTED PATIENT TO BATHROOM USING FRONT WHEELED WALKER. LAB REP CHARTED PATIENTS VOIDINGS ON CHART IN ROOM. CALL LIGHT WITHIN REACH, NO FURTHER NEEDS AT THIS TIME.
--- NOTE | 2023-10-25 19:47 | NUR ---
REPORT RECIEVED FROM DAY SHIFT RN. PATIENT RESTING IN BED ON BACK WITH EYES CLOSED. RESPIRATIONS EVEN AND UNLABORED. CALL LIGHT IN REACH.
--- NOTE | 2023-10-25 20:22 | NUR ---
CALL LIGHT ANSWERED. PATIENT UP TO BATHROOM WITH SBA AND FWW TO VOID. PATIENT BACK TO BED. ASSESSMENT COMPELTE. VS AND I&Os OBAINED AND RECORDED. SCHEDULED MEDICATION ADMINISTERED. PRN SLEEP MEDICATION ADMINISTERED PER PATIENT REQUEST. IV FLUSHES WNL. PATIENT REFUSED SCDs. EDUCATION PROVIDED. PATIENT VERBILIZES UNDERSTANDING. FRESH WATER PROVIDED. BED ALARM ON FOR SAFETY. PATIENT HAS NO FURTHER NEEDS. CALL LIGHT IN REACH.
--- NOTE | 2023-10-25 22:44 | NUR ---
PATIENT IN BED RESTING WITH EYES CLOSED. RESPIRATIONS EVEN AND UNLABORED. CALL LIGHT IN REACH.
--- NOTE | 2023-10-25 23:50 | NUR ---
CALL LIGHT ANSWERED. PATIENT UP TO BATHROOM TO VOID WITH SBA AND FWW. PATIENT BACK TO BED. SCDs IN PLACE. PATIENT HAS NO FURTHER NEEDS. CALL LIGHT IN REACH.
[2023-10-26] VITALS (7 sets, daily range): BP systolic 114–137; BP diastolic 72–90
--- NOTE | 2023-10-26 01:02 | NUR ---
CALL LIGHT ANSWERED. PATIENT NEEDING TO USE RESTROOM. PATIENT UP WITH SBA AND FWW TO VOID. PATIENT BACK TO BED. PATIENT REPORTS 8/10 BACK PAIN. PRN PAIN AND SLEEP MEDICATION ADMINISTERED PER PATIENT REQUEST. SCDs IN PLACE. VS AND I&Os OBTAINED AND RECORDED. PATIENT DENIES FURTHER NEEDS AT THIS TIME. CALL LIGHT IN REACH. BED ALARM ON FOR SAFETY.
--- NOTE | 2023-10-26 01:12 | NUR ---
CALL LIGHT ANSWERED. PATIENT REPORTING BACK PAIN. THIS RN AND ELECTRICAL DESIGN ENGINEER REPOSITIONED PATIENT IN BED. PATIENT REPORTS FEELING A LITTLE BIT MORE COMFORTABLE. PATIENT HAS NO FURTHER NEEDS. CALL LIGHT IN REACH. BED ALARM ON FOR SAFETY.
--- NOTE | 2023-10-26 02:13 | NUR ---
CALL LIGHT ANSWERED. PATIENT UP TO BATHROOM WITH SBA AND FWW. PATIENT BCAK TO BED. BED ALARM ON FOR SAFETY. PATIENT REPORTS 9/10 BACK PAIN. PRN PAIN MEDICATION ADMINISTERED. NO FURTHER NEEDS. CALL LIGHT IN REACH. SCDs IN PLACE.
--- NOTE | 2023-10-26 03:22 | NUR ---
CALL LIGHT ANSWERED. PATIENT UP TO BATHROOM WITH SBA AND FWW TO VOID. PATIENT BACK TO BED. NO FURTHER NEEDS. BED ALARM ON FOR SAFETY. CALL LIGHT IN REACH.
[2023-10-26 05:36] LABS: BASOPHILS 0.8 % (0-2); EOSINOPHILS 4.2 % (0-6); HEMATOCRIT 38.6 % (35.0-50.0); HEMOGLOBIN 12.8 g/dL (12.0-18.0); LYMPHOCYTES 18.8 % (24-44); MCH 30.8 (27-36); MCHC 33.2 g/dl (30-36); MCV 92.5 fl (81-99); MONOCYTES 11.4 % (0-12); NEUTROPHILS 64.8 % (39-80); PLATELET COUNT 169 K/uL (140-440); RBC 4.17 M/ul (4.3-5.7)
[2023-10-26 05:45] LABS: ANION GAP 12.5 (7-21); BUN/CREATININE RATIO 20.19 (6.0-28.6); CALCIUM 8.9 mg/dL (8.5-10.1); CREATININE, SERUM 1.04 mg/dL (0.70-1.30); MAGNESIUM 1.9 mg/dL (1.8-2.4); POTASSIUM 4.5 mmol/L (3.5-5.1)
--- NOTE | 2023-10-26 06:09 | NUR ---
PATIENT RESTING IN BED WITH EYES CLOSED. PRN PAIN MEDICATION ADMINISTERED FOR 08/23 BACK PAIN. PATIENT STATES "I AM FEELING BETTER THAN LAST NIGHT". PATIENT HAS NO FURTHER NEEDS. CALL LIGHT IN REACH.
--- NOTE | 2023-10-26 06:35 | NUR ---
PATIENT REPORTS 7/10 BACK PAIN. PRN PAIN MEDICATION ADMINISTERED PER PATIENT REQUEST. NO FURTHER NEEDS. CALL LIGHT IN REACH.
--- NOTE | 2023-10-26 07:14 | NUR ---
REPORT RECEIVED FROM RAIL WASHER RN GEORGE. PATIENT IS UP TO THE BATHROOM WITH RN ORTHOPEDIC AT THIS TIME. PATIENT WITH NO NEEDS. CALL LIGHT WITHIN REACH.
[2023-10-26] MEDS ORDERED: TAMSULOSIN HCL 0.4 MG CAP PO SCH (09:00)
--- NOTE | 2023-10-26 09:09 | NUR ---
TAKING OFF RT SERVICE. CALL WITH CONCERNS OR O2 USE.
--- NOTE | 2023-10-26 09:46 | NUR ---
Patient setting up in bed, eating bed. Discussed the possibility of discharge today. Patient is AAOx3, even comments on the significance of the date 10/25. Patient states that he does continue to have back pain. He shares that his is working on in home health with Seema Bill, a local friend who has experience in care giving. Patient states that Seema has agreed to come into the home and assist with care. Patient feels he is ready to discharge, states that his is working on the care arrangements. IMM letter signed, patient agrees to waive 4 hour wait time if discharged in the next 4 hours. Patient also states that his care has been really good. Pt denies additional care needs at this time.
--- NOTE | 2023-10-26 09:57 | NUR ---
Patient given copy of signed second IMM letter.
--- NOTE | 2023-10-26 09:59 | NUR ---
PATIENT IS SITTING UPRIGHT IN BED WITH EYES CLOSED AND RESPIRATIONS ARE EVEN AND UNLABORED. PATIENT WITH BREAKFAST TRAY SET UP IN FRONT OF THE PATIENT. PATIENT STATED NO FURTHER NEEDS AT THIS TIME. CALL LIGHT AND PERSONAL BELONGINGS ARE WITHIN REACH.
--- NOTE | 2023-10-26 10:01 | NUR ---
VISITED DURING SPIRITUAL CARE ROUNDS. PT APPEARED TO BE SLEEPING. DID NOT DISTURB. PROVIDED PRAYER.
--- NOTE | 2023-10-26 10:15 | NUR ---
Spoke with David briefly. He plans on dc to home today. He is unsure if his has set up times for Noam Khan to come and assist them. He states she will be here shortly. I will return then.
--- NOTE | 2023-10-26 10:34 | NUR ---
0900 MEDICATIONS ADMINISTERED BY YESICA BRANHAM RN EARLIER THIS MORNING. FULL ASSESSMENT COMPLETE AND DOCUMENTED IN THE CHART. PATIENT BREAKFAST TRAY COMPLETE AND REMOVED FROM THE PATIENTS ROOM. PATIENT IS SITTING UPRIGHT IN THE BED WITH EYES OPEN AND RESPONDING APPROPRIATELY. PATIENT IS ALERT AND ORIENTED TIMES FOUR. PATIENT IS ON ROOM AIR AND LUNG SOUNDS ARE CLEAR BILATERALLY. CARDIAC WITH IRREGULAR HEART TONES. PATIENT IS ON TELEMETRY NUMBER 10 AND IN SINUS TACHYCARDIA. HR IS 101. RADIAL PULSES ARE STRONG BILATERALLY. BOWEL TONES ARE ACTIVE IN ALL FOUR QUADRANTS. PATIENT IS ON A REGULAR DIET AND HIS LAST BOWEL MOVEMENT WAS 10/24/23. SKIN ASSESSMENT COMPLETE WITH YESICA BRANHAM RN. PATIENT WITH PAIN RATED 5/10 IN THE BACK AND RIGHT SIDE OF THE BACK. LIDOCAINE PATCH IN PLACE BUT IS NOT REQUESTING PAIN MEDICATION AT THIS TIME. IV FLUSHED WITH 10 ML NORMAL SALINE AND IS SALINE LOCKED. IV DRESSING IS CLEAN, DRY, AND INTACT. PATIENT STATED NO FURTHER NEEDS AT THIS TIME. CALL LIGHT AND PERSONAL BELONGINGS ARE WITHIN REACH.
--- NOTE | 2023-10-26 11:07 | NUR ---
PATIENT UP TO BSC FOR VOID WITH THIS CHILDRENS CLUB ATTENDANT AND FWW. IN ROOM. BACK TO BED, CALL LIGHT IN EASY REACH
--- NOTE | 2023-10-26 11:15 | NUR ---
Notified by staff pts is here. In and spoke with David and Nayla. Per Nayla, she contacted Noam and he will meet them at their home and assist getting David into the home. David agrees to use a wc and not walk without assistance. He and Nayla deny any futher needs. They plan on dc to home today. He has his TLSO brace, walker, wc, and grab bars at home.
--- NOTE | 2023-10-26 11:27 | NUR ---
PATIENT IS LYING IN BED WITH EYES CLOSED AND RESPIRATIONS ARE EVEN AND UNLABORED. PATIENT IS SITTING IN THE CHAIR AT BEDSIDE. CALL LIGHT AND PERSONAL BELONGINGS ARE WITHIN REACH.
[2023-10-26] MEDS ORDERED: METOPROLOL TART25 MG PO (11:56)
[2023-10-26] MEDS ORDERED: OXYCODONE HCL5 MG PO (11:56)
--- NOTE | 2023-10-26 12:40 | NUR ---
IV SITE REMOVED AND PATIENT TOLERATED WELL. IV CATHETER INTACT. TELEMETRY REMOVED AT THIS TIME. DISCHARGE INSTRUCTIONS AND EDUCATION ON FALL PREVENTION AND RIB FRACTURES REVEIWED WITH THE PATIENT AND HIS . PATIENT AND HIS STATED NO FURTHER QUESTIONS OR CONCERNS. DISCHARGE PAPER SIGNED. PHARMACIST IS NOW IN THE ROOM AND REVEIWING MEDICATIONS WITH THE PATIENT AND HIS . RN INTERACTION COMPLETE.
--- NOTE | 2023-10-26 13:10 | NUR ---
PATIENT IS TAKING A SHOWER AT THIS TIME WITH ASSISTANCE FROM HIS AND BREANA TRINIDAD. PATIENT STATED NO NEEDS AT THIS TIME. CALL LIGHT IS WITHIN REACH.
== END 2023-10-26 13:35 | disposition home or self-care (01) | DRG 184 ==
LOC: ED 19:33 → MS 22:44
PROVIDERS: Internal Medicine; ADMIT Student in an Organized Health Care Education/Training Program; ATTEND Student in an Organized Health Care Education/Training Program
DX: S22.41XA Multiple fractures of ribs, right side, initial encounter for closed fracture (principal); J94.2 Hemothorax; S22.078A Other fracture of T9-T10 vertebra, initial encounter for closed fracture; S27.69XA Other injury of pleura, initial encounter; R29.6 Repeated falls; I48.91 Unspecified atrial fibrillation; Z66 Do not resuscitate; I10 Essential (primary) hypertension; K59.00 Constipation, unspecified; J32.9 Chronic sinusitis, unspecified; E83.51 Hypocalcemia; M85.80 Other specified disorders of bone density and structure, unspecified site; I25.10 Atherosclerotic heart disease of native coronary artery without angina pectoris; E78.5 Hyperlipidemia, unspecified; N40.0 Benign prostatic hyperplasia without lower urinary tract symptoms; W19.XXXA Unspecified fall, initial encounter; Z98.890 Other specified postprocedural states; Z79.01 Long term (current) use of anticoagulants; Z79.899 Other long term (current) drug therapy; Z98.1 Arthrodesis status
CPT/HCPCS: 36415; 70450; 71045; 71250; 72125; 72128; 72131; 80048; 80053; 80307; 81003; 83735; 84100; 85025; 86850; 86900; 86901; 93005; 93010; 93306; 94760; 96374; 97116; 97162; 97166; 97530; 97535; 99285-25; A9270; G0480; J0612; J1885; J1940; J2212; J3475; J7121

== ENCOUNTER 2024-02-26 02:17 | Emergency (ER) | payer MEDICARE, BC ==
[~2024-02-26] VITALS: Ht 177.8 cm; Wt 81.6 kg
[~2024-02-26 02:17] MED LIST changes: -METAMUCIL0.4 GM PO; +METOPROLOL TART25 MG PO; +OXYCODONE HCL5 MG PO; +PSYLLIUM FIBE0.52 GM PO
[2024-02-26] MEDS ORDERED: MORPHINE SULFATE 4 MG/ML VIAL IV ONE (02:30)
[2024-02-26 02:36] LABS: BILIRUBIN, URINE NEGATIVE (negative); BLOOD/HGB, URINE LARGE (Negative); KETONE, URINE NEGATIVE (Negative); LEUK ESTERASE, URINE MODERATE (negative); NITRITE, URINE POSITIVE (negative); PH, URINE 5.5 (5-7)
[2024-02-26 02:37] LABS: BASOPHILS 0.6 % (0-2); EOSINOPHILS 1.1 % (0-6); HEMATOCRIT 39.6 % (35.0-50.0); HEMOGLOBIN 13.2 g/dL (12.0-18.0); LYMPHOCYTES 12.9 % (24-44); MCH 30.6 (27-36); MCHC 33.3 g/dl (30-36); MCV 91.8 fl (81-99); MONOCYTES 9.9 % (0-12); NEUTROPHILS 75.5 % (39-80); PLATELET COUNT 201 K/uL (140-440); RBC 4.31 M/ul (4.3-5.7); RDW 16.7 (10.5-15.0)
[2024-02-26 02:44] LABS: CRYSTALS, URINE NONE SEEN (0-1+); EPITHELIAL CELLS, URINE NONE SEEN /lpf (0-1+); WHITE BLOOD CELLS, URINE 41-50 /HPF (0-5)
[2024-02-26 02:45] LABS: BACTERIA, URINE 2+ /hpf (negative); CASTS, URINE NONE SEEN \\lpf; COLLECTION TYPE, URINE CLEAN CATCH; REFLEX CULTURE, URINE Yes (No)
[2024-02-26 02:48] LABS: INR 1.39 (0.80-1.30)
[2024-02-26 02:53] LABS: ALBUMIN 3.2 g/dL (3.4-5.0); ALBUMIN/GLOBULIN RATIO 0.91 (1.1-2.4); ALCOHOL, MEDICAL <3 ng/dL (<3); ALKALINE PHOSPHATASE 92 U/L (46-116); ALT (SGPT) 20 U/L (14-59); ANION GAP 16.9 (7-21); AST (SGOT) 24 U/L (15-37); BILIRUBIN, TOTAL 2.1 ng/dL (0.2-1.0); BUN/CREATININE RATIO 16.35 (6.0-28.6); CALCIUM 8.8 mg/dL (8.5-10.1); CARBON DIOXIDE 23 mmol/L (21-32); CHLORIDE 102 mmol/L (98-107); CREATINE KINASE 102 U/L (39-308); CREATININE, SERUM 1.59 mg/dL (0.70-1.30); GLOMERULAR FILTRATION RATE,EST 42 mL/min (>60); POTASSIUM 3.9 mmol/L (3.5-5.1); PROTEIN, TOTAL 6.7 g/dL (6.4-8.2); UREA NITROGEN 26 mg/dL (7-18)
[2024-02-26] MEDS ORDERED: SODIUM CHLORIDE 0.9% 500 ML IV PRN (03:00)
[2024-02-26 04:09] LABS: BILIRUBIN, URINE NEGATIVE (negative); BLOOD/HGB, URINE LARGE (Negative); KETONE, URINE NEGATIVE (Negative); LEUK ESTERASE, URINE MODERATE (negative); NITRITE, URINE POSITIVE (negative); PH, URINE 5.5 (5-7)
[2024-02-26 04:21] LABS: BACTERIA, URINE 2+ /hpf (negative); CASTS, URINE NONE SEEN \\lpf; COLLECTION TYPE, URINE CLEAN CATCH; CRYSTALS, URINE NONE SEEN (0-1+); EPITHELIAL CELLS, URINE NONE SEEN /lpf (0-1+); REFLEX CULTURE, URINE Yes (No); WHITE BLOOD CELLS, URINE 21-40 /HPF (0-5)
[2024-02-26 05:40] VITALS: BP 95/72
[2024-02-26] MEDS ORDERED: CEFDINIR 300 MG HOME.PACK PO ONE (05:45)
[2024-02-26] MEDS ORDERED: CEFDINIR300 MG PO ×3 (05:46→15:13)
[2024-02-26] MEDS ORDERED: ELIQUIS5 MG PO (12:23)
[2024-02-26] MEDS ORDERED: METHOCARBAMOL750 MG PO (12:37)
[2024-02-26] MEDS ORDERED: HYDROCODON-ACE1 EA10 PO (12:38)
[2024-02-26] MEDS ORDERED: MIRTAZAPINE15 MG PO (12:39)
== END 2024-02-26 07:55 | disposition home or self-care (01) ==
LOC: ED 02:17
PROVIDERS: Family Medicine
DX: T84.216A Breakdown (mechanical) of internal fixation device of vertebrae, initial encounter (principal); W06.XXXA Fall from bed, initial encounter; Y79.8 Miscellaneous orthopedic devices associated with adverse incidents, not elsewhere classified; Z79.899 Other long term (current) drug therapy
CPT/HCPCS: 36415; 70450; 72125; 72131; 72192; 80053; 81001; 82553; 85025; 85610; 87077; 87088; 87186; 96374; 99284-25; G0480; J2270; J7040

== ENCOUNTER 2024-02-26 12:00 | Emergency (ER) | payer MEDICARE, BC ==
[~2024-02-26] VITALS: Ht 177.8 cm; Wt 83.0 kg
[~2024-02-26 12:00] MED LIST changes: +CEFDINIR300 MG PO
[2024-02-26] MEDS ORDERED: ELIQUIS5 MG PO (12:23)
[2024-02-26] MEDS ORDERED: METHOCARBAMOL750 MG PO (12:37)
[2024-02-26] MEDS ORDERED: HYDROCODON-ACE1 EA10 PO (12:38)
[2024-02-26] MEDS ORDERED: MIRTAZAPINE15 MG PO (12:39)
[2024-02-26] MEDS ORDERED: CEFDINIR300 MG PO ×2 (12:56→15:13)
[2024-02-26] MEDS ORDERED: CEPHALEXIN MONOHYDRATE 500 MG CAP PO ONE (15:15)
[2024-02-26] MEDS ORDERED: CEFDINIR 300 MG CAP PO ONE (15:15)
[2024-02-26 15:18] VITALS: BP 122/87
== END 2024-02-26 15:20 | disposition home or self-care (01) ==
LOC: ED 12:00
DX: M25.551 Pain in right hip (principal); N39.0 Urinary tract infection, site not specified; Z98.890 Other specified postprocedural states; Z79.01 Long term (current) use of anticoagulants; Z79.899 Other long term (current) drug therapy; W08.XXXA Fall from other furniture, initial encounter
CPT/HCPCS: 73502; 99283

== ENCOUNTER 2024-02-27 07:59 | Inpatient (IN) | payer MEDICARE, BC ==
[~2024-02-27] VITALS: Ht 177.8 cm; Wt 81.0 kg
[~2024-02-27 07:59] MED LIST changes: +HYDROCODON-ACE1 EA10 PO; +METHOCARBAMOL750 MG PO; +MIRTAZAPINE15 MG PO
[2024-02-27 08:21] LABS: BASOPHILS 0.6 % (0-2); EOSINOPHILS 1.6 % (0-6); HEMATOCRIT 37.5 % (35.0-50.0); HEMOGLOBIN 12.4 g/dL (12.0-18.0); LYMPHOCYTES 11.2 % (24-44); MCH 30.5 (27-36); MCHC 33.1 g/dl (30-36); MCV 92.2 fl (81-99); MONOCYTES 9.3 % (0-12); NEUTROPHILS 77.3 % (39-80); PLATELET COUNT 187 K/uL (140-440); RBC 4.07 M/ul (4.3-5.7); RDW 16.6 (10.5-15.0)
[2024-02-27 08:29] LABS: ALBUMIN 2.9 g/dL (3.4-5.0); ALBUMIN/GLOBULIN RATIO 0.91 (1.1-2.4); ANION GAP 14.2 (7-21); BILIRUBIN, TOTAL 2.4 ng/dL (0.2-1.0); BUN/CREATININE RATIO 16.66 (6.0-28.6); CALCIUM 8.6 mg/dL (8.5-10.1); CREATININE, SERUM 1.26 mg/dL (0.70-1.30); POTASSIUM 4.2 mmol/L (3.5-5.1); PROTEIN, TOTAL 6.1 g/dL (6.4-8.2)
[2024-02-27 08:32] LABS: LACTIC ACID, BLOOD 1.3 mmol/L (0.4-2.0)
[2024-02-27] MEDS ORDERED: SODIUM CHLORIDE 0.9% 500 ML IV PRN (08:45)
[2024-02-27] MEDS ORDERED: CEFTRIAXONE/SODIUM CHLORIDE 1 GM/100 ML PIGGYBACK IV ONE (10:00)
[2024-02-27] MEDS ORDERED: ENOXAPARIN SODIUM 40 MG/0.4 ML SYR SUB-Q SCH (10:14)
[2024-02-27] MEDS ORDERED: ACETAMINOPHEN 325 MG TAB PO PRN (10:15)
[2024-02-27] MEDS ORDERED: bisacodyL 10 MG SUPP PR PRN (10:15)
[2024-02-27] MEDS ORDERED: ondansetron HCL 4 MG/2 ML VIAL IV PRN (10:15)
[2024-02-27] MEDS ORDERED: LACTATED RINGER'S 1,000 ML IV SCH (10:15)
[2024-02-27 10:40] LABS: TSH, 3RD GENERATION 0.911 uIU/mL (0.358-3.740)
--- NOTE | 2024-02-27 11:00 | NUR ---
PT TO FLOOR VIA STRETCHER. WALKING ALONG. PT SLEEPING SOUNDLY DUE TO MEDICATIONS GIVEN AT [facility]. VS STABLE. DUGGAN IN PLACE.
[2024-02-27 11:02] VITALS: BP 90/63
[2024-02-27] MEDS ORDERED: PHARMACY RENAL DOSE ADJUSTMENT 1 DOSE MISC PO SCH (12:00)
--- NOTE | 2024-02-27 12:07 | NUR ---
PT NOW AWAKE AND TALKATIVE. DUGGAN REMOVED AFTER DISCUSSING WITH DR BARFIELD AND AND PT. PT HAS ONLY HAD ONE SINCE SURGERY. TOOK FLOMAX IN THE PAST ANS STATES IT WORKED WELL AND DOES NOT KNOW WHY THEY STOPPED IT. EDUCATED ON CALLING TO GET UP AND USE THE RESTOOM. AND THE USE OF MALE PUREWICK POSSIBLY AT NIGHT. ASSESSMENT COMPLETE. LARGE YELLOWING BRUISE WITH DRESSINGS NOTED ON RIGHT HIP. CALL LIGHT IN REACH.
--- NOTE | 2024-02-27 12:59 | NUR ---
CALLED DOWN TO KITCHEN TO GET A LUNCH FOR PATIENT HE DID NOT GET ANY. PATIENT AWARE.
[2024-02-27 13:48] VITALS: BP 114/81
--- NOTE | 2024-02-27 13:49 | NUR ---
PATIENT SITTING UP IN BED TALKING WITH RN. VITALS AND I&O'S DONE AND CHARTED. CALL LIGHT IN REACH. NO FURTHER NEEDS AT THIS TIME.
[2024-02-27 14:02] LABS: BASOPHILS 0.5 % (0-2); EOSINOPHILS 2.3 % (0-6); HEMATOCRIT 38.6 % (35.0-50.0); HEMOGLOBIN 12.8 g/dL (12.0-18.0); LYMPHOCYTES 16.1 % (24-44); MCH 30.7 (27-36); MCHC 33.2 g/dl (30-36); MCV 92.4 fl (81-99); MONOCYTES 8.6 % (0-12); NEUTROPHILS 72.5 % (39-80); PLATELET COUNT 208 K/uL (140-440); RBC 4.17 M/ul (4.3-5.7); RDW 16.7 (10.5-15.0)
--- NOTE | 2024-02-27 14:08 | NUR ---
UR CLINICAL REVIEW: 2 MN FOR VERSALUS-MEETS OBS CRITERIA FOR UTI/AMS MEDICARE OBS 02/27/24 @ 1014 ORDER MATCHES REG NO AUTH REQUIRED PER MEDICARE GUIDELINES DISCHARGE-RETURN TO SNF WHEN STABLE 02/28/24
[2024-02-27 14:17] LABS: ALBUMIN 3.1 g/dL (3.4-5.0); ALBUMIN/GLOBULIN RATIO 0.89 (1.1-2.4); ANION GAP 11.3 (7-21); BILIRUBIN, TOTAL 2.1 ng/dL (0.2-1.0); BUN/CREATININE RATIO 17.59 (6.0-28.6); CALCIUM 8.7 mg/dL (8.5-10.1); CREATININE, SERUM 1.08 mg/dL (0.70-1.30); POTASSIUM 4.3 mmol/L (3.5-5.1); PROTEIN, TOTAL 6.6 g/dL (6.4-8.2)
--- NOTE | 2024-02-27 14:53 | NUR ---
PT RESTING WITH EYES CLOSED.
--- NOTE | 2024-02-27 15:02 | NUR ---
CALLED AND SPOKE WITH SHAHRAM AT [facility], PATIENT IS CURRENTLY A SNF PATIENT AND THEY PLAN ON HIM RETURNING FROM HOSPITAL WHEN MEDICALLY CLEARED.
--- NOTE | 2024-02-27 15:10 | NUR ---
PHYSICAL THERAPY IN ROOM TO WORK WITH PT.
[2024-02-27 15:14] VITALS: BP 114/81
--- NOTE | 2024-02-27 17:27 | NUR ---
PT UP IN CHAIR TALKING WITH GRANDDAUGHTER. ASKED IF HE FELT THE URGE TO PEE YET, STATED NO BUT HE IS WAITING FOR IT. TOLD HIM WE WOULD NEED TO BLADDER SCAN WITHIN THE HOUR. ATE SOME OF DINNER.
[2024-02-27 17:45] VITALS: BP 92/62
--- NOTE | 2024-02-27 18:12 | NUR ---
PATIENT UP TO BATHROOM FROM CHAIR, 1PA FWW. PATIENT DID NOT VOID. PATIENT THEN TO BED FROM BATHROOM, 1PA FWW. RN REQUESTING BLADDER SCAN. BLADDER SCAN DONE WITH A TOTAL OF 207 mL, RN NOTIFIED. CALL LIGHT IN REACH. BED ALARM ON. NO FURTHER NEEDS AT THIS TIME.
[2024-02-27] MEDS ORDERED: TAMSULOSIN HCL 0.4 MG CAP PO SCH (18:30)
--- NOTE | 2024-02-27 19:30 | NUR ---
PER RN BLADDER SCANNED AND SHOWS 292ML. RN NOTIFIED.
--- NOTE | 2024-02-27 19:34 | NUR ---
pt resting, eyes closed, was bladder scanned again. with 292cc noted by bladder scanner. will notify
[2024-02-27 20:12] VITALS: BP 99/69
--- NOTE | 2024-02-27 20:15 | NUR ---
AWAKE, ALERT AND ORIENTED TO ALL. NO C/O PAIN OR SOB WITH EXERTION, TELE IN PLACE. LUNGS CLEAR, ON ROOM AIR. ABD SOFT, PT DOES NOT KNOW WHEN LBM WAS. BRUISING ARMS, EDEMA AND BRUISING R HIP AREA, SCDS IN PLACE, DENIES N&T, IVF INFUSING, HELPFUL WITH TURNING AND REPOSITIONING,
--- NOTE | 2024-02-27 20:38 | NUR ---
DR BARFIELD NOTIFIED, NEW ORDERS TO INCREAESD FLOMAX TO 0.8MG START IN AM. AND HE MAY BE STRAIGHT CATH IF UNABLE TO VOID AND BLADDER SCANNER SHOWS 350CC OR MORE IN BLADDER
[2024-02-27] MEDS ORDERED: LIDOCAINE 2% VISCOUS 6 ML SYR TOP ONE (20:45)
[2024-02-27] MEDS ORDERED: MELATONIN 3 MG TAB PO PRN (21:00)
--- NOTE | 2024-02-27 21:00 | NUR ---
PT CALLS TO USE BR. FWW, SBA TO BR AND BACK TO BED. URINE SAMPLE SENT TO LAB. IV FLUIDS INFUSING PER ORDER, SCDs ON. BED ALARM ON, RAILS UP, CALL LIGHT IN REACH.
--- NOTE | 2024-02-27 21:17 | NUR ---
pt voided small amount 50cc of dark yellow colored urine, sample sent to lab
[2024-02-27 21:59] VITALS: BP 99/69
--- NOTE | 2024-02-27 22:00 | NUR ---
RESTING, NO SS/X DISTRESS, IVF INFUSING, SCDS IN PLACE, BED ALRM IN PLACE FALL PRECAUTIONS
--- NOTE | 2024-02-27 23:35 | NUR ---
CALL LIGHT ANSWERED. 1 PA TO THE BATHROOM USING WALKER. PATIENT IS A LITTLE WOBBLY WALKING BUT TOLERATED WELL. PATIENT URINATED 200ML YELLOW URINE AND MEDIUM SOFT FORMED BM. PATIENT IS BACK IN BED. SCD'S BACK ON. BED ALARM ON. CALL LIGHT IN PATIENT'S HAND. NO OTHER NEEDS AT THIS TIME.
--- NOTE | 2024-02-27 23:59 | NUR ---
Up to BRP with assist. voided nad had a bm. Back to bed, sob with exertion notedl IVF infusing. scds in place. no c/o pain
[2024-02-28] VITALS (11 sets, daily range): BP systolic 90–157; BP diastolic 50–66
--- NOTE | 2024-02-28 02:53 | NUR ---
AWAKENS EASILY, COOPERATIVE WITH VITALS AND ASSESSMENT. UP TO BRP. VOIDED AND HAD SMALL BM. ATTENDS IN PLACE. 1PA/FWW. BRUISED AREA R HIP. SCDS IN PLACE. IVF INFUSING W/O PROBLEMS. ALERT AND ORIENTED TO ALL. TELE#[address] RHYTHM SR AT THIS TIME, DENIES CP. SOB NOTED WITH EXERTION ON RETURN TO BED.
--- NOTE | 2024-02-28 04:23 | NUR ---
resting, eyes closed, no s/sx distress. tele#[address] IVF infusing w/o peoblems. bed alarms in place
[2024-02-28 05:22] LABS: BASOPHILS 0.9 % (0-2); EOSINOPHILS 2.9 % (0-6); HEMATOCRIT 33.9 % (35.0-50.0); HEMOGLOBIN 11.4 g/dL (12.0-18.0); LYMPHOCYTES 18.7 % (24-44); MCH 31.1 (27-36); MCHC 33.7 g/dl (30-36); MCV 92.1 fl (81-99); MONOCYTES 8.4 % (0-12); NEUTROPHILS 69.1 % (39-80); PLATELET COUNT 169 K/uL (140-440); RBC 3.68 M/ul (4.3-5.7); RDW 16.8 (10.5-15.0)
[2024-02-28 05:31] LABS: BUN/CREATININE RATIO 16.66 (6.0-28.6); CALCIUM 8.3 mg/dL (8.5-10.1); CREATININE, SERUM 1.02 mg/dL (0.70-1.30); MAGNESIUM 1.3 mg/dL (1.8-2.4)
--- NOTE | 2024-02-28 07:07 | NUR ---
VERBAL REPORT RECEIVED FROM GOPAL BENTLEY. PT RESTS IN BED WITH EYES CLOSED, RESP EVEN AND UNLABORED.
[2024-02-28] MEDS ORDERED: MAGNESIUM SULFATE 1 GM/2 ML VIAL IV ONE (08:00)
[2024-02-28] MEDS ORDERED: MAGNESIUM SULFATE 2 GM/50 ML BAG IV SCH (08:15)
[2024-02-28] MEDS ORDERED: ALBUMIN HUMAN 25% 100 ML BTL IV ONE (08:15)
--- NOTE | 2024-02-28 08:24 | NUR ---
PT CALLED NEEDED TO USE RESTROOM NURSE WAS IN ROOM WITH PT WALKED TO RESTROOM. PT VOIDED AND IT WAS CHARTED. PT IS UP IN CHAIR WITH CHAIR ALARM ON AND LINENS WERE CHANGED IN BED CALL LIGHT IS WITHIN REACH AND PT DIDNT NEED ANYTHING ELSE FROM ME.
--- NOTE | 2024-02-28 08:32 | NUR ---
PT LEAVES UNIT VIA WHEELCHAIR ESCORTED BY IMAGING STAFF TO PROCEDURE.
[2024-02-28] MEDS ORDERED: AMIODARONE HCL 200 MG TAB PO SCH (09:00)
[2024-02-28] MEDS ORDERED: TAMSULOSIN HCL 0.4 MG CAP PO SCH ×2 (09:00)
[2024-02-28] MEDS ORDERED: METOPROLOL SUCCINATE 50 MG TABCR PO SCH (09:00)
[2024-02-28] MEDS ORDERED: CEFTRIAXONE/SODIUM CHLORIDE 2 GM/100 ML PIGGYBACK IV SCH (09:00)
--- NOTE | 2024-02-28 10:01 | NUR ---
PT NOT AVAILABLE FOR VISIT. PROVIDED PRAYER.
[2024-02-28] MEDS ORDERED: SENNA8.6 MG PO (10:16)
--- NOTE | 2024-02-28 10:23 | NUR ---
MED REC COMPLETE
--- NOTE | 2024-02-28 10:24 | NUR ---
PT RESTS IN RECLINER, BLE ELEVATED. CALL LIGHT AND BELONGINGS IN REACH. NO REQUESTS AT THIS TIME. CHAIR ALARM IN PLACE.
--- NOTE | 2024-02-28 10:47 | NUR ---
NOTES, MED LIST, FACESHEET FAXED TO [facility] FOR UPDATE.
--- NOTE | 2024-02-28 11:33 | NUR ---
Spoke with Gil. Pt moved to [place] approx 1 wk ago following surgery. He is unable to get out of bed or a chair without assist. He does not want to return to the SNF, feels he has to return until he can get up on his own. She denies any needs and they have all needed DME. Pt will dc to SNF when cleared medically.
--- NOTE | 2024-02-28 11:52 | NUR ---
PATIENT IN CHAIR AT THIS TIME. GUT SNATCHER ASSISTED PATIENT INTO BATHROOM AND THEN BACK TO THE CHAIR. GUT SNATCHER RECORDED VOIDINGS ON CHART IN ROOM. CALL LIGHT DOMINGUEZ DAS, NO FURTHER NEEDS AT THIS TIME.
--- NOTE | 2024-02-28 13:31 | NUR ---
UR CLINICAL REVIEW: 2 MN FOR VERSALUS-MEET INPT CRITERIA FOR GENERAL ADMISSION MEDICARE OBS TO INPT 02/28/24 @ 0916 ORDER MATCHES REG NO AUTH REQUIRED PER MEDICARE GUIDELINES RETURN TO SNF WHEN STABLE
--- NOTE | 2024-02-28 19:34 | NUR ---
REPORT RECIEVED FROM DAY SHIFT RN. PATIENT RESTING IN BED. DENIES NEEDS AT THIS TIME. CALL LIGHT IN REACH.
[2024-02-28] MEDS ORDERED: APIXABAN 5 MG TAB PO SCH (21:00)
--- NOTE | 2024-02-28 21:25 | NUR ---
PATIENT RESTING IN BED. PATIENT R HIP DRESSING REMOVED. PICTURE CONSENT SIGNED AND PLACED IN CHART. PICTURE OF R HIP INSICION SITE, SKIN TEAR AND BRUISE PLACED IN CHART. PATIENT STATED "I DONT THINK THAT DRESSING HAS BEEN REMOVED SINCE MY SURGERY ON THE 2ND". PATIENT R HIP INCISION SITE CLEANED WITH CHLORHEXIDINE AND COVERED WITH ACTICOAT SURGICAL DRESSING. SCHEDULED MEDICATION ADMINISTERED. IV FLUSHES WNL. PATIENT DENIES FURTHER NEEDS AT THIS TIME. CALL LIGHT IN REACH.
--- NOTE | 2024-02-28 22:00 | NUR ---
PATIENT'S CALL LIGHT ANSWERED. 1 PA TO THE BATHROOM USING GAIT BELT AND WALKER. PATIENT VOIDED 325ML YELLOW URINE. PATIENT IS BACK IN BED. DENIES OTHER NEED. BED ALARM ON FOR SAFETY. CALL LIGHT IN REACH. FALL MAT IN PLACED.
[2024-02-29] VITALS (7 sets, daily range): BP systolic 94–108; BP diastolic 55–74
--- NOTE | 2024-02-29 00:34 | NUR ---
CALL LIGHT ANSWERED. PATIENT UP TO BATHROOM WITH SBA AND FWW TO VOID. PATIENT BACK TO BED. VS AND I&Os OBTAINED AND RECORDED. PATIENT DENIES FURTHER NEEDS. CALL LIGHT IN REACH. BED ALARM ON.
--- NOTE | 2024-02-29 02:58 | NUR ---
PATIENT RESTING IN BED ON BACK WITH EYES CLOSED. RESPIRATIONS EVEN AND UNLABORED. CALL LIGHT IN REACH.
--- NOTE | 2024-02-29 05:30 | NUR ---
PATIENT RESTING IN BED. VS AND I&Os OBTAINED AND RECORDED. PATIENT DENIES FURTHER NEEDS AT THIS TIME. CALL LIGHT IN REACH. BED ALARM ON.
[2024-02-29 05:46] LABS: ANION GAP 10.1 (7-21); BUN/CREATININE RATIO 13.13 (6.0-28.6); CALCIUM 8.4 mg/dL (8.5-10.1); CREATININE, SERUM 0.99 mg/dL (0.70-1.30); MAGNESIUM 1.9 mg/dL (1.8-2.4); PHOSPHORUS, INORGANIC 2.9 mg/dL (2.5-4.9); POTASSIUM 4.1 mmol/L (3.5-5.1)
--- NOTE | 2024-02-29 07:02 | NUR ---
VERBAL REPORT RECEIVED FROM GOPAL VAZQUEZ. PT RESTS IN BED WITH EYES CLOSED, RESP EVEN AND UNLABORED.
--- NOTE | 2024-02-29 09:30 | NUR ---
Spoke with Don. Pt will dc back to [facility] today. I attempted to call Elizabeth INFANTE and left a message.
--- NOTE | 2024-02-29 11:00 | NUR ---
STUDENT NURSE AND I GAVE PATIENT A SHOWER. WASHED HIS HAIR. NEW GOWN AND SOCKS. WHEN PATIENT GOT BACK TO HIS CHAIR HE BRUSHED HIS TEETH BEFORE LUNCH.
--- NOTE | 2024-02-29 12:30 | NUR ---
Texted Elizabeth at [facility].
[2024-02-29] MEDS ORDERED: TAMSULOSIN HCL0.4 MG PO (12:33)
[2024-02-29] MEDS ORDERED: CEFUROXIME500 MG PO (12:34)
--- NOTE | 2024-02-29 13:30 | NUR ---
Called [facility] and spoke with one of the nurses. She states pt can return at any time. I will get orders, pasrr, labs, emars and fax to [facility]. Elizabeth called as soon as I ended the call and states her phone has not been working. I will schedule transport. Called transport and they will be here a 2:15 with the van. Updated and pt.
--- NOTE | 2024-02-29 14:00 | NUR ---
ENCOUNTERED PT AND ON THEIR WAY OUT. PT AND BOTH EXPRESSED HOPE, VÍCTOR. PROFESSOR OF SOCIAL WORK PROVIDED SUPPORTIVE PRESENCE, HOSPITALITY, PRAYER, FACILITATED BRIEF INTERACT WITH THERAPY ANIMAL. PT AND EXPRESSED GRATITUDE.
--- NOTE | 2024-02-29 14:09 | NUR ---
DISCUSSED DISCHARGE PLAN WITH PT AND SPOUSE, BOTH VERBALIZE UNDERSTANDING. PT ASSISTED TO DRESS. IV REMOVED, TIP INTACT, GAUZE AND COBAN APPLIED TO SITE. PT TOLERATED WELL. PT LEAVES UNIT VIA WHEELCHAIR ESCORTED BY BREANA DELATORRE TO [facility].
== END 2024-02-29 14:09 | disposition home or self-care (01) | DRG 690 ==
LOC: ED 07:59 → MS 08:01
PROVIDERS: Emergency Medicine; ADMIT Student in an Organized Health Care Education/Training Program; ATTEND Student in an Organized Health Care Education/Training Program
DX: N39.0 Urinary tract infection, site not specified (principal); R64 Cachexia; I48.20 Chronic atrial fibrillation, unspecified; I50.32 Chronic diastolic (congestive) heart failure; Z68.1 Body mass index [BMI] 19.9 or less, adult; N40.0 Benign prostatic hyperplasia without lower urinary tract symptoms; E78.5 Hyperlipidemia, unspecified; G89.29 Other chronic pain; R41.0 Disorientation, unspecified; R29.6 Repeated falls; Z87.81 Personal history of (healed) traumatic fracture; E05.80 Other thyrotoxicosis without thyrotoxic crisis or storm; K74.60 Unspecified cirrhosis of liver; S00.91XA Abrasion of unspecified part of head, initial encounter; W18.30XA Fall on same level, unspecified, initial encounter; Z96.82 Presence of neurostimulator; Z98.890 Other specified postprocedural states; Z79.899 Other long term (current) drug therapy; Z79.891 Long term (current) use of opiate analgesic; Z79.01 Long term (current) use of anticoagulants
CPT/HCPCS: 36415; 51798; 70450; 72125; 72170; 74177; 76536; 80048; 80053; 82140; 83605; 83735; 84100; 84439; 84443; 85025; 87088; 96361; 96365; 96374; 96375; 96376; 97162; 97166; 97530; 97535; 99285-25; A9270; G0378; G0480; J0696; J3475; J7121; P9047; Q9967

== ENCOUNTER 2024-11-22 21:41 | Inpatient (IN) | payer MEDICARE, BC ==
[~2024-11-22] VITALS: Ht 177.8 cm; Wt 81.1 kg
[~2024-11-22 21:41] MED LIST changes: +CEFUROXIME500 MG PO; +SENNA8.6 MG PO
[2024-11-22 22:10] LABS: BASOPHILS 0.5 % (0.2-1.2); EOSINOPHILS 1.7 % (0.8-7.0); LYMPHOCYTES 6.5 % (21.8-53.1); MCH 29.1 PG (25.7-32.2); MCHC 32.7 g/dL (32.3-36.5); MCV 89.1 fL (79.0-92.2); MONOCYTES 10.1 % (5.3-12.2); NEUTROPHILS 80.4 % (34.0-67.9); RBC 4.40 M/uL (4.63-6.08)
[2024-11-22 22:20] LABS: ALT (SGPT) 12.0 U/L (14-59); AST (SGOT) 12.0 U/L (15-37); GLOMERULAR FILTRATION RATE,EST 59.0 mL/min (>60); PROTEIN, TOTAL 6.6 g/dL (6.4-8.2); UREA NITROGEN 25.0 mg/dL (7-18)
[2024-11-23] VITALS (14 sets, daily range): BP systolic 105–195; BP diastolic 65–119
[2024-11-23 00:09] LABS: BLOOD/HGB, URINE LARGE (Negative); KETONE, URINE TRACE (Negative); LEUK ESTERASE, URINE LARGE (negative); NITRITE, URINE POSITIVE (negative)
[2024-11-23 00:14] LABS: EPITHELIAL CELLS, URINE SQUAMOUS 1+ /lpf (0-1+)
[2024-11-23 00:15] LABS: BACTERIA, URINE 3+ /hpf (negative); CASTS, URINE NONE SEEN \\lpf; CRYSTALS, URINE NONE SEEN (0-1+); REFLEX CULTURE, URINE Yes (No)
[2024-11-23] MEDS ORDERED: LIDOCAINE 2% VISCOUS 6 ML SYR TOP ONE (00:30)
[2024-11-23] MEDS ORDERED: ACETAMINOPHEN 325 MG TAB PO PRN ×2 (00:45→08:30)
--- NOTE | 2024-11-23 01:30 | NUR ---
RECEIVED REPORT FROM GOPAL SHOOK. PT TRANSPORTED TO ROOM 113 VIA STRETCHER BY THIS RN. HOVERMAT USED FOR TRANSFER TO HOSPITAL BED FROM [facility] DUE TO PT'S REPORTED WEAKNESS. PT A&Ox4. REPORTS CHRONIC LOW BACK PAIN, PT ASSISTED TO REPOSITION IN BED AND KNEES ELEVATED, HOB ELEVATED FOR COMFORT. SPOUSE AT BEDSIDE. LS. ON RA. HRIR. BTA. REPORTS LBM YESTERDAY (11/21). 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 DENIES DYSURIA. LFA SL WNL. PT HAS A COUPLE MINOR ABRASIONS TO LEFT TOES. CALL LIGHT WITHIN REACH.
--- NOTE | 2024-11-23 03:19 | NUR ---
PT AWAKE, SLEEPING BETWEEN CARE. IV ATB'S STARTED. PT SIPPED SOME ICE WATER W/ ENC. SPOUSE AT BEDSIDE.
--- NOTE | 2024-11-23 03:55 | NUR ---
AWAKE, SLEEPING BETWEEN CARE. IV ATB COMPLETED. DENIES ANY FURTHER NEEDS.
--- NOTE | 2024-11-23 06:44 | NUR ---
PT AWAKE, SPOUSE REMAINS AT BEDSIDE. PT ENC TO INCREASE WATER INTAKE. UO IN [facility] CATH CLOUDY CYNTHIA W/ LARGE SEDIMENT AND FOUL ODOR. DENIES DYSURIA.
--- NOTE | 2024-11-23 07:22 | NUR ---
REPORT RECIEVED FROM GOPAL MATHIS. PATIENT RESING IN BED WITH HIS AT BEDSIDE. PATIENT REQUESTING TO GET UP TO USE BATHROOM. THIS RN AND BREANA FRANCIS ASSISTED PATIENT WITH TRANSFER VIA PATIENTS 4 WHEEL WALKER. BREANA FRANCIS IN ROOM ASSISTING PATIENT BACK TO BED. WHITE BOARD UPDATED. PATIENT'S WITHOUT ANY NEEDS AT THIS TIME.
--- NOTE | 2024-11-23 08:55 | NUR ---
PATIENT MEDICATED PER EMAR. PATIENT UP WITH PT FOR A WALK. LIDOCAINE PATCH APPLIED TO PATIENT RIGHT LOWER BACK PER PATIENT REQUEST.
[2024-11-23] MEDS ORDERED: APIXABAN 5 MG TAB PO SCH (09:00)
[2024-11-23] MEDS ORDERED: LIDOCAINE HCL 4% 1 EACH PATCH TD SCH (09:00)
--- NOTE | 2024-11-23 09:15 | NUR ---
PATIENT ASSESSMENT COMPLETED. PATIENT IS ALERT AND ORIENTED X4. PATIENT UP TO CHAIR AFTER WALK WITH THERAPY. PATIENT IV FLUSHED WITH 10ML OF NS, DRESSING IS INTACT. IV ABX INFUSING PER ORDER. PATIENT WITHOUT FURTHER NEEDS AT THIS TIME. CALL LIGHT AND PERSONAL BELONGINGS ARE WITHIN REACH.
[2024-11-23] MEDS ORDERED: TAMSULOSIN HCL0.4 MG PO (09:18)
--- NOTE | 2024-11-23 10:00 | NUR ---
PATIENT IV FLUSHED WITH 10ML OF NS, DRESSING IS INTACT. IV IS SALINE LOCKED AFTER ABX INFUSION. PATIENT SITTING UP IN HIS CHAIR. BREANA FRANCIS IN ROOM OBTAINING VITAL SIGNS. VITAL SIGNS ARE STABLE. PATIENT IS WITHOUT FURTHER NEEDS FROM THIS RN AT THIS TIME. CALL LIGHT AND PERSONAL BELONGINGS ARE WITHIN REACH.
--- NOTE | 2024-11-23 10:04 | NUR ---
PATIENT IS IN HIS CHAIR AT THIS TIME, COMPRESS MACHINE OPERATOR CHARTED VITALS AND I&O'S, CALL LIGHT WITH IN REACH, GOT FRESH ICE WATER. PATIENT REFUSED ORAL CARE. AND NOTHING ELSE NEEDED AT THIS TIME.
--- NOTE | 2024-11-23 11:00 | NUR ---
INTO SEE PATIENT. PERSONAL HEALTH INFORMATION REVIEWED. PATIENT LIVES AT HOME WITH HIS . PATIENT HAS 3 STEPS INTO THE HOME. HE USES A FOUR WHEELED WALKER. PATIENT DOES NOT USE OXYGEN OR CPAP. PATIENT DOES NOT DRIVE BUT KOURTNEY DOES THE DRIVING AND CARETAKING. DENIES ANY DIFFCULTY PAYING UTLITIES OR OBTAINING FOOD. PATIENT DOES NOT WANT TO GO TO SNF. KUORTNEY STATES "GOING TO [facility] LAST TIME WAS INEFFECTIVE AND MADE HIM WORSE." WOULD BE OPEN TO THE IDEA OF HOME HEALTH AT TIME OF DISCHARGE.
--- NOTE | 2024-11-23 11:21 | NUR ---
PATIENT SITTING UP IN HIS CHAIR AND DENIES ANY NEEDS AT THIS TIME. CALL LIGHT AND PERSONAL BELONGINGS ARE WITHIN REACH.
--- NOTE | 2024-11-23 11:26 | NUR ---
VISITED DURING SPIRITUAL CARE ROUNDS. PT APPEARED TO BE SLEEPING. DID NOT DISTURB. PROVIDED PRAYER.
[2024-11-23] MEDS ORDERED: PHARMACY RENAL DOSE ADJUSTMENT 1 DOSE MISC PO SCH (12:00)
--- NOTE | 2024-11-23 12:02 | NUR ---
PATIENT SITTING UP IN HIS CHAIR WITH HIS LUNCH TRAY SET INFRONT OF HIM. FRESH ICE WATER PROVIDED. PATIENT IS WITHOUT FURTHER NEEDS AT THIS TIME. CALL LIGHT AND PERSONAL BELONGINGS ARE WITHIN REACH.
[2024-11-23] MEDS ORDERED: VITAMIN C1000 MG PO (12:21)
[2024-11-23] MEDS ORDERED: I-VITE TABLET1 EAC1 PO (12:21)
[2024-11-23] MEDS ORDERED: VITAMIN D325 MCG PO (12:21)
--- NOTE | 2024-11-23 12:21 | NUR ---
MED REC COMPLETE
--- NOTE | 2024-11-23 13:12 | NUR ---
PATIENT RESTING IN HIS CHAIR WITH HIS EYES CLOSED. EVEN AND UNLABORED RESPIRAITONS NOTED. CALL LIGHT AND PERSONAL BELONGINGS ARE WITHIN REACH.
--- NOTE | 2024-11-23 13:31 | NUR ---
INSPECTOR PENETRANT ASSISTED PATIENT TO THE RESTROOM AND BACK TO HIS CHAIR, CHARTED VITALS AND I&O'S, EMPTIED CATH BAG, CALL LIGHT WITH IN REACH, FRESH ICE WATER, AND NOTHING ELSE NEEDED AT THIS TIME.
--- NOTE | 2024-11-23 14:46 | NUR ---
PATIENT SITTING UP IN HIS CHAIR WITH HIS EYES CLOSED AND HIS MOUTH OPEN. EVEN AND UNLABORED RESPIRATIONS NOTED. CALL LIGHT AND PERSONAL BELONGINGS ARE WITHIN REACH.
--- NOTE | 2024-11-23 15:35 | NUR ---
PATIENT SITTING UP IN HIS CHAIR WITH HIS AT HIS SIDE. PATIENT AND HIS IS WITHOUT ANY NEEDS AT THIS TIME. CALL LIGHT AND PERSONAL BELONGINGS ARE WITHIN REACH.
[2024-11-23] MEDS ORDERED: ATORVASTATIN 20 MG TAB PO SCH (17:00)
--- NOTE | 2024-11-23 17:00 | NUR ---
PATIENT MEDICATED PER EMAR. FRESH ICE WATER PROVIDED. PATIENT WITHOUT FURHTER NEEDS AT THIS TIME. CALL LIGHT AND PERSONAL BELONGINGS ARE WITHIN REACH.
--- NOTE | 2024-11-23 18:22 | NUR ---
PATIENT IS IN HIS CHAIR WATCHING THE [place] GAME AT THIS TIME, TRAILER SECTIONS ASSEMBLER CHARTED VITALS AND I&O'S, EMPTIED CATH BAG, OFFERED TO ASSIST PATIENT BACK TO BED WHICH HE SAID NOT YET AND THAT HE WOULD CALL WHEN HE IS READY. CALL LIGHT WITH IN REACH AND NOTHING ELSE NEEDED AT THIS TIME.
--- NOTE | 2024-11-23 20:18 | NUR ---
CALL LIGHT ANSWERED. PT NEEDED TO USE BATHROOM. INTERFACE ANALYST SBA WITH FWW TO BATHROOM. PT INSTRUCTED TO USE BATHROOM CALL LIGHT WHEN READY. BATHROOM CALL LIGHT ANSWERED. PT ASSISTED BACK TO BED. VITALS AND I&O OBTAINED. RN IN ROOM AND AWARE OF PT HIGH B/P. PT CALL LIGHT WITHIN REACH AND RN REMAINS IN ROOM.
--- NOTE | 2024-11-23 20:35 | NUR ---
Pt up to brp with OEM SALES MANAGER and using FWW. had small bm, back to bed, tolerated fair. Helped with repositioning, vitals and assessments. On room air, lungs very clear, tele#[address] afib w PVC's, denies CP. Irregular rhythm and rate. abd soft, IVIS, f/c patent draining clear yellow urine. red between buttocks, c/o low R back pain, lidocaine patch removed and medicated with Tylenol. Melatonin given at this time his requests per insomnia, took meds w.o problems. rolled towel to back to help with pain, stated " it feels better", SL patent.
[2024-11-23] MEDS ORDERED: MELATONIN 3 MG TAB PO PRN (21:00)
[2024-11-23] MEDS ORDERED: LIDOCAINE PATCH REMOVAL 1 EA TD SCH (21:00)
--- NOTE | 2024-11-23 23:09 | NUR ---
DR BARFIELD NOTIFIED OF PTS ELEVATED BP EARLIER ON SHIFT 165/108. AND 180/112 195/119 MAP 122. DENIED H/A OR OTHER SX AT THAT TIME BP RECHECKED AT 2245 AND IT READS 125/84 MAP 93. "I WILL SEE HIM IN AM, NO ORDERS AT THIS TIME"
--- NOTE | 2024-11-23 23:44 | NUR ---
PT RESTING, EYES CLOSED, NO S/SX DISTRESS, ON ROOM AIR, REPOSITIONS SELF IN BED, F/C PATENT
[2024-11-24] VITALS (9 sets, daily range): BP systolic 119–134; BP diastolic 47–84
--- NOTE | 2024-11-24 01:57 | NUR ---
DEBRANDER OBTAINED VITALS AND I&O. DUGGAN BAG EMPTIED. PT STATES NO NEEDS AT THIS TIME. CALL LIGHT WITHIN REACH.
--- NOTE | 2024-11-24 02:00 | NUR ---
Awakens easily, coop with vitals, no c/o pain. on room air. f/c patent
--- NOTE | 2024-11-24 04:44 | NUR ---
resting, on room air, no s/sx distress, repositions self in bed, f/c patent
[2024-11-24 05:28] LABS: BASOPHILS 0.6 % (0.2-1.2); EOSINOPHILS 6.6 % (0.8-7.0); LYMPHOCYTES 19.5 % (21.8-53.1); MCH 29.6 PG (25.7-32.2); MCHC 33.2 g/dL (32.3-36.5); MCV 89.3 fL (79.0-92.2); MONOCYTES 12.7 % (5.3-12.2); NEUTROPHILS 60.1 % (34.0-67.9); RBC 4.29 M/uL (4.63-6.08)
[2024-11-24 05:43] LABS: GLOMERULAR FILTRATION RATE,EST 69.0 mL/min (>60); UREA NITROGEN 19.0 mg/dL (7-18)
--- NOTE | 2024-11-24 07:11 | NUR ---
PATIENT RESTING IN BED WITH HIS EYES CLOSED. EVEN AND UNLABORED RESPIRATIONS NOTED. CALL LIGHT AND PERSONAL BELONGINGS ARE WITHIN REACH.
[2024-11-24] MEDS ORDERED: TAMSULOSIN HCL 0.4 MG CAP PO SCH (09:00)
[2024-11-24] MEDS ORDERED: AMIODARONE HCL 200 MG TAB PO SCH (09:00)
--- NOTE | 2024-11-24 09:01 | NUR ---
PATIENT MEDICATED PER EMAR. PATIENT ASSESSMENT COMPLETED. PATIENT DENIES WANTING TO GET UP TO HIS CHAIR AT THIS TIME, BUT STATES HE "WILL CALL WHEN I'M READY TO". PATIENT IV FLUSHED WITH 10ML OF NS, DRESSING IS INTACT. IV ABX INFUSING PER ORDER. PATIENT WITHOUT FURTHER NEEDS AT THIS TIME. VITAL SIGNS TAKEN AND ARE STABLE. CALL LIGHT AND PERSONAL BELONGINGS ARE WITHIN REACH.
--- NOTE | 2024-11-24 09:25 | EKG ---
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
--- NOTE | 2024-11-24 10:30 | NUR ---
PATIENT DUGGAN REMOVED PER MD ORDER. PATIENT TOLERATED WELL. PATIENT EDUCATED TO CALL STAFF WHEN HE NEEDS TO URINATE AND WE WILL ASSIST PATIENT TO THE BATHROOM. PERICARE COMPLETED. FRESH ICE WATER PROVIDED. PATIENT WITHOUT FURTHER NEEDS AT THIS TIME. CALL LIGHT AND PERSONAL BELONGINGS ARE WITHIN REACH.
--- NOTE | 2024-11-24 11:21 | NUR ---
PATIENT RESTING IN BED WITH HIS EYES CLOSED. EVEN AND UNLABORED RESPIRATIONS NOTED. CALL LIGHT AND PERSONAL BELONGINGS ARE WITHIN REACH.
--- NOTE | 2024-11-24 12:04 | NUR ---
PT IN ROOM WORKING WITH PATIENT.
--- NOTE | 2024-11-24 13:31 | NUR ---
PATIENT RESTING IN HIS CHAIR WITH HIS AT BEDSIDE. PATIENT AND HIS WITHOUT ANY NEEDS AT THIS TIME. CALL LIGHT AND PERSONAL BELONGINGS ARE WITHIN REACH.
--- NOTE | 2024-11-24 14:23 | NUR ---
PATIENT SITTING UP IN HIS CHAIR VISITING WITH HIS AND VISITOR. PATIENT REPORTS BEING ABLE TO URINATE SINCE DUGGAN REMOVAL. URINE WAS NOT ABLE TO BE MEASURED DUE TO PATIENT URINATING WHILE HAVING A BOWEL MOVEMENT. PATIENT DENIES ANY PAIN OR PRESSURE ON HIS BLADDER. PATIENT WITHOUT FURTHER NEEDS AT THIS TIME. CALL LIGHT AND PERSONAL BELONGINGS ARE WITHIN REACH.
--- NOTE | 2024-11-24 14:45 | NUR ---
THIS RN IN ROOM ASSISTING PATIENT TO BATHROOM FOR BM. PATIENT TOLERATED WELL. PATIENT STATES HE NEEDS AT "FEW MINUTES" AND WILL CALL WHEN HE IS FINSIHED. CALL LIGHT IS WITHIN REACH.
--- NOTE | 2024-11-24 15:55 | NUR ---
ASSOCIATE PROFESSOR OF COUNSELING IN ROOM ASSISTING PATIENT TO BATHROOM
--- NOTE | 2024-11-24 19:54 | NUR ---
PATIENT RESTING IN BED. PATIENT DECLINED ORAL CARE AND A WARM WASHCLOTH DUE TO ALREADY SLEEPING. PATIENTS CALL LIGHT IS WITHIN REACH AND NO FURTHER NEEDS AT THIS TIME.
--- NOTE | 2024-11-24 21:00 | NUR ---
Pt resting, eyes closed, on room air, cooperative with vitals and assessments. Lungs clear uppers and fine crackles at bases. abd soft, stated LBM today. "they pulled the tube out and I been tinkling little bits" stated. Up to BRP, voided small amounts of medium colored urine. Back to bed, tolerated well. slight SOB on return present, sats WNL. cooperative with vitals. Tele#[address] Sinus rhythm, denies CP and even though I noticed slight SOB on returns pt denied feeling SOB or lightheadness. SL patent. Medicated with Tylenol per back pain, unable to find lidocaine patch on back, Medicated with Melatonin for insomnia. Pleasant and cooperative
--- NOTE | 2024-11-24 23:57 | NUR ---
RESTING, EYES CLOSED, ON ROOM AIR, REPOSITIONS SELF IN BED. TELE#[address]
[2024-11-25] VITALS (7 sets, daily range): BP systolic 114–132; BP diastolic 63–90
--- NOTE | 2024-11-25 02:45 | NUR ---
Pt was resting, woken up easily. stated "I have not gone to pee all night long, I have been awake all night as I think Im going to pee and I just feel a pressure but I cant pee." Pt has been sleeping sooundly every time this RN has done rounds. Pt in same position. Pt was found to be incontinent of large amount of clear urine soaked attends bedding and linen. skin care done, and bed bath given, whole bed linen changed and gown too. Up to BRP, voided some more and had a smear of bm. Back to bed, SOB with exertion and tachychardic on return. Was very upset with self that he soiled himself. Reassured and calmed down, pleced self back to bed R side. Tele in place #5 SR/ ST when walking. no c/o CP. Tolerated very well. Tolerating liquids well, denies need for pain meds at this time. weak LE 1PA/FWW
--- NOTE | 2024-11-25 05:22 | NUR ---
awakens easily, no c/o pain, up to brp, voided, back to bed, tolerated much better, no sob with exertion, 1PA/FWW, placed self back in bed. tele#[address] no c/o CP
--- NOTE | 2024-11-25 07:40 | NUR ---
PATIENT CALLED TO USE BATHROOM, THIS YOUTH PROBATION OFFICER IN TO ASSIST. PATIENT UP TO BATHROOM THEN TO CHAIR, SBA FWW. LINENS CHANGED. CHAIR ALARM ON. CALL LIGHT IN REACH. NO FURTHER NEEDS AT THIS TIME.
--- NOTE | 2024-11-25 08:04 | NUR ---
PT SLEEPING AT TIME OF SHIFT REORT, LEFT UNDISTURBED. AWAKE NOW UP IN THE CHAIR EATING HIS BREAKFAST. CALL LIGHT IN REACH PT DENIES NEEDS OF
[2024-11-25] MEDS ORDERED: METOPROLOL SUCCINATE 50 MG TABCR PO SCH (09:00)
--- NOTE | 2024-11-25 09:06 | NUR ---
ASSISTED PATIENT TO RESTROOM AND BACK TO CHAIR. SCHEDULED MEDICATIONS ADMINISTERED. CALL LIGHT AND PERSONAL BELONGINGS IN REACH OF PT. PT DENIES CONCERNS.
--- NOTE | 2024-11-25 09:46 | NUR ---
DR PALACIOSOO IN TO SEE PT, DC DISCUSSED. CONFIRMS DC TO HOME AFTER CONFIRMING WITH PT . PT CONTINUES IN THE CHAIR IV ABX INFUSING AT THIS TIME
--- NOTE | 2024-11-25 10:22 | NUR ---
PATIENT SITTING UP IN CHAIR AT THIS TIME. VITALS AND I&O'S DONE AND CHARTED. CHAIR ALARM ON. CALL LIGHT IN REACH. NO FURTHER NEEDS AT THIS TIME. PATIENT REFUSED SHOWER AT THIS TIME HE THINKS HE WILL BE DISCHARGED AND WANTS TO TAKE ONE AT HOME.
--- NOTE | 2024-11-25 10:49 | NUR ---
PATIENT AMBULATING WITH PT. ASSISTED PT IN AMBULATING PATIENT ON STAIRS. PATIENT SITTING IN CHAIR AND WORKING FURTHER WITH PT AT THIS TIME.
--- NOTE | 2024-11-25 11:15 | NUR ---
PATIENT IN CHAIR. TELE DC'D PER ORDER, CALL LIGHT IN REACH. PATIENT DENIES CONCERNS.
--- NOTE | 2024-11-25 11:28 | NUR ---
PATIENT IN CHAIR, DENIES CONCERNS. CALL LIGHT AND PERSONAL BELONGINGS IN REACH.
--- NOTE | 2024-11-25 12:30 | NUR ---
PATIENT IN CHAIR, CALL LIGHT IN REACH. AT BEDSIDE INQUIRING IF PATIENT IS DISCHARGING TO HOME TODAY. I REVIEWED CURRENT PLAN OF CARE WITH . REQUESTING TO SPEAK TO MD FOR FURTHER DETAILS AND TO DISCUSS CHANGES TO PLAN OF CARE. CALLED MD BARFIELD AND UPDATED HIM ON 'S REQUEST. HE VERBALIZED UNDERSTANDING, NO NEW ORDERS AT THIS TIME.
--- NOTE | 2024-11-25 13:13 | NUR ---
PATIENT CALLED TO USE BATHROOM, THIS CAKE CUTTER MACHINE IN TO ASSIST. UP TO BATHROOM AND BACK TO CHAIR, SBA FWW. IN ROOM. VITALS AND I&O'S DONE AND CHARTED. CHAIR ALARM ON. CALL LIGHT IN REACH. NO FURTHER NEEDS AT THIS TIME.
[2024-11-25] MEDS ORDERED: CEFUROXIME500 MG PO (13:38)
--- NOTE | 2024-11-25 14:27 | NUR ---
PRESENT FOR DC INSTRUCTIONS ALL PERSONAL ITEMS GATHERED SHE ASSURES THIS HEALTH OCCUPATIONS INSTRUCTOR SHE HAS HIS RAZOR AND ALL RELEVANT ITMES, NOTHING LEFT BEHIND.
--- NOTE | 2024-11-26 11:39 | NUR ---
UR RETRO CLINICAL REVIEW: 2 MN FOR VERSALUS-PER BOILER OPERATOR HELPER MEETS INPT FOR UTI/WEAKNESS WITH NEED FOR IV ABX, DUGGAN AND [facility] MEDICARE INPT 11/23/24 @ 0824 ORDER MATCHES REG NO AUTH REQUIRED PER MEDICARE GUIDELINES DISCHARGE TO SNF VS HOME WITH HH WHEN STABLE
== END 2024-11-25 14:05 | disposition home or self-care (01) | DRG 872 ==
LOC: ED 21:41 → MS 11-23 00:45
PROVIDERS: Internal Medicine; ADMIT Student in an Organized Health Care Education/Training Program; ATTEND Student in an Organized Health Care Education/Training Program
DX: A41.9 Sepsis, unspecified organism (principal); N39.0 Urinary tract infection, site not specified; R29.6 Repeated falls; M54.50 Low back pain, unspecified; G89.29 Other chronic pain; I48.91 Unspecified atrial fibrillation; N40.0 Benign prostatic hyperplasia without lower urinary tract symptoms; E78.5 Hyperlipidemia, unspecified; I50.9 Heart failure, unspecified; Z79.01 Long term (current) use of anticoagulants; Z79.899 Other long term (current) drug therapy
CPT/HCPCS: 36415; 51702; 51798; 70450; 71045; 80048; 80053; 81001; 83735; 83880; 84484; 85025; 87088; 93005; 93010; 97162; 97166; 97530; 97535; 99285-25; A9270; J0696

== ENCOUNTER 2025-02-08 10:11 | Emergency (ER) | payer MEDICARE, BC ==
[~2025-02-08] VITALS: Ht 177.8 cm; Wt 81.1 kg
[~2025-02-08 10:11] MED LIST changes: +I-VITE TABLET1 EAC1 PO; +VITAMIN C1000 MG PO; +VITAMIN D325 MCG PO
[2025-02-08 11:09] LABS: BASOPHILS 0.5 % (0.2-1.2); EOSINOPHILS 11.5 % (0.8-7.0); LYMPHOCYTES 9.5 % (21.8-53.1); MCH 29.4 PG (25.7-32.2); MCHC 32.8 g/dL (32.3-36.5); MCV 89.7 fL (79.0-92.2); MONOCYTES 8.4 % (5.3-12.2); NEUTROPHILS 69.5 % (34.0-67.9); RBC 4.76 M/uL (4.63-6.08)
[2025-02-08] MEDS ORDERED: ALBUTEROL/IPRATROPIUM 3 ML NEB ONE (11:29)
[2025-02-08 11:42] LABS: ALT (SGPT) 16.0 U/L (14-59); AST (SGOT) 17.0 U/L (15-37); GLOMERULAR FILTRATION RATE,EST 47.0 mL/min (>60); PROTEIN, TOTAL 7.9 g/dL (6.4-8.2); UREA NITROGEN 23.0 mg/dL (7-18)
[2025-02-08] MEDS ORDERED: ALBUTEROL/IPRATROPIUM 3 ML NEB INH ONE (11:45)
[2025-02-08] MEDS ORDERED: SODIUM CHLORIDE 0.9% 1,000 ML IV ONE (12:00)
[2025-02-08] MEDS ORDERED: ALBUTEROL SULFATE 8 GM HOME.PACK INH ONE (13:15)
[2025-02-08] MEDS ORDERED: VENTOLIN HFA18 GM INH (13:17)
[2025-02-08] MEDS ORDERED: PREDNISONE20 MG PO (13:17)
[2025-02-08 13:49] VITALS: BP 116/87
--- NOTE | 2025-02-09 19:15 | EKG ---
[facility] [address] [facility] [place] [address] Signed Atrial fibrillation Inferior infarct (cited on or before 23-OCT-2023) Abnormal ECG When compared with ECG of 22-NOV-2024 22:46, Current undetermined rhythm precludes rhythm comparison, needs review Confirmed by Orlando Barfield DO ([id number]) on 02/09/2025 7:15:31 PM Electronically Signed By: ORLANDO BARFIELD DO 02/09/251914 PATIENT NAME: KVNG MEDRANO Electrocardiogram DATE OF : 37 PHYSICIAN: ORLANDO BARFIELD DO REPORT #: [id number] REPORT IS CONFIDENTIAL AND NOT TO BE RELEASED WITHOUT AUTHORIZATION
== END 2025-02-08 13:49 | disposition home or self-care (01) ==
LOC: ED 10:11
PROVIDERS: Emergency Medicine
DX: J98.01 Acute bronchospasm (principal); I50.9 Heart failure, unspecified; I48.91 Unspecified atrial fibrillation; Z79.899 Other long term (current) drug therapy
CPT/HCPCS: 36415; 71045; 80053; 83735; 83880; 84484; 85025; 93005; 93010; 94640; 96374; 99285-25; J2919; J7030